=== PATIENT | female | born 1935 | race Caucasian/White ===

== ENCOUNTER 2018-07-14 15:43 | Emergency (ER) | payer OTHER ==
--- OUTSIDE RECORDS SUMMARY | 2018-07-14 15:45 | XMS REPORT | Clinical Summary ---
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 Last Filed Vital Signs Not on file Plan of Treatment Health Maintenance Due Date Last Done Comments SHINGLES VACCINES (1 of 2) 1986 PNEUMOCOCCAL POLYSACCHARIDE VACCINE AGE 65 AND OVER 2001 PNEUMOCOCCAL-13 2001 INFLUENZA VACCINE 01/14/2018 Procedures Procedure Name Priority Date/Time Associated Diagnosis Comments NM BRAIN SPECT W I Routine 02/26/2018 4:37 Heterozygous for Results for this 123 DATSCAN PM CDT prothrombin [id number] procedure are in mutation the results section. after 07/13/2017 Results NM Brain Spect W I 123 Datscan (02/26/2018 4:37 PM CDT) Narrative Performed At PROCEDURE:NM BRAIN SPECT W I 123 DATSCAN RADIANT INDICATION:Parkinson's disease. TECHNIQUE: The patient was pretreated with potassium iodide drops for thyroid protection and then injected with 4 mCi of I-123 DaTscan IV. Brain SPECT imaging was then performed. FINDINGS:Posterior striatal uptake is decreased, left side worse than right. 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 [facility]-[id number] Procedure Note Hm Interface, Radiology Results - 02/26/2018 6:10 PM CDT PROCEDURE: NM BRAIN SPECT W I 123 DATSCAN INDICATION: Parkinson's disease. TECHNIQUE: The patient was pretreated with potassium iodide drops for thyroid protection and then injected with 4 mCi of I-123 DaTscan IV. Brain SPECT imaging was then performed. FINDINGS: Posterior striatal uptake is decreased, left side worse than right. IMPRESSION: 1. 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 [facility]-[id number] Performing Organization Address City/State/Zipcode Phone Number [facility] [address] [place] [address] after 07/13/2017 Insurance Payer Benefit Plan / Group Subscriber ID Type Phone Address AETNA AETNA PPO OPEN CHOICE xxxxxxxx PPO AETNA MEDICARE AETNA MEDICARE HMO/PPO [facility] xxxxxxxx HMO (Lead) [place] [address] Advance Directives Patient has advance care planning documents on file. For more information, please contact:Huan Garg[address] [place] [address]
--- NOTE | 2018-07-14 16:36 | RAD REPORT ---
EXAM DESCRIPTION: RAD - Chest Single View - 07/14/2018 4:30 pm CLINICAL HISTORY: CHEST PAIN Chest pain. COMPARISON: No comparisons FINDINGS: Portable technique limits examination quality. The lungs are emphysematous but clear. The heart is normal in size. No displaced fractures.Aortic ath erosclerosis. 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 IMPRESSION: COPD.
[2018-07-14 16:37] LABS: Absolute Lymphocytes (CBC) 1.4 K/uL (0.7-4.9); Absolute Monocytes 0.4 K/uL (0.1-1.3); Absolute Neutrophil 4.1 K/uL (1.8-8.0); Basophils % 0.8 % (0-1.3); Eosinophils % 4.8 % (0-4.4); Hematocrit 37.8 % (36.0-45.0); Lymphocytes % 22.2 % (15.3-44.8); MPV 8.1 fL (7.6-11.3); Monocytes % 6.1 % (3.3-12.3); RBC Red Blood Cell Count 4.16 M/uL (3.86-4.86)
[2018-07-14 16:42] LABS: Protime INR 1.07
[2018-07-14 16:54] LABS: ALT/SGPT 30 U/L (12-78); AST/SGOT 24 U/L (15-37); Albumin 3.8 g/dL (3.4-5.0); Alkaline Phosphatase 85 U/L (45-117); BUN Blood Urea Nitrogen 19 mg/dL (7-18); Bicarbonate 30 mmol/L (21-32); Bilirubin Direct < 0.1 mg/dL (0-0.2); Bilirubin Total 0.3 mg/dL (0.2-1.0); Glucose Level 95 mg/dL (74-106); Magnesium 2.1 mg/dL (1.8-2.4); NT PRO-BNP 485 pg/mL (<450); Potassium 3.6 mmol/L (3.5-5.1); Protein, Total 7.2 g/dL (6.4-8.2); Sodium Level 140 mmol/L (136-145); Troponin (Emerg Dept Use Only) 0.02 ng/mL (0.0-0.045)
[2018-07-14] MEDS ORDERED: IPRATROPIUM BROM 0.5MG/2.5ML ONE (17:03)
[2018-07-14] MEDS ORDERED: LEVALBUTEROL 1.25 MG/3 ML NEB ONE (17:03)
--- NOTE | 2018-07-14 17:07 | EKG ---
Test Date: 2018-07-14 Test Time: 16:27:49 Vault Attendant: ANKITA MEASUREMENT RESULTS: Intervals: Rate: 63 ID: [id number] QRSD: 78 QT: 448 QTc: 458 [place]: P: 62 ID: [id number] QRS: 1 T: -28 INTERPRETIVE STATEMENTS: Sinus rhythm with 1st degree AV block Nonspecific T wave abnormality Abnormal ECG No previous ECG available for comparison Electronically Signed On 07-14-18 17:06:38 UPHOLSTERER HELPER by Tom Gillespie
[2018-07-14] MEDS ORDERED: ASPIRIN 81 MG CHEWABLE TABLET ONE (18:52)
--- NOTE | 2018-07-14 19:22 | RAD REPORT ---
EXAM DESCRIPTION: CT - Chest For Pe Angio - 07/14/2018 6:58 pm CLINICAL HISTORY: Progressive chest pain COMPARISON: None. TECHNIQUE: Dynamically enhanced 3 mm thick images of the chest were obtained during administration o f approximately 150mL Isovue 370 IV contrast. Coronal and oblique MIP reconstruction images were gene rated and reviewed. Exam utilizes a protocol to evaluate the pulmonary arterial tree. All CT scans are performed using dose optimization technique as appropriate and may include automated exposure control or mA/KV adjustment according to patient size. FINDINGS: A small hypodense focus is present in the distal aspect of a medial left upper lobe segmen fatoumata branch artery (image 25/76). This partially fills the vessel lumen. This is believed to be a pulm onary embolism but cannot be confirmed as acute. The vessel is not dilated. There are no other fillin g defects in the left upper lobe and no other filling defects elsewhere in the pulmonary arterial cheng e distribution. The aorta as imaged shows no acute or suspicious finding. No pericardial thickening or effusion. Interstitial markings are prominent. No acute consolidation. Mild bronchial wall thickening is seen. Pattern with along with an underlying COPD. A mild viral infiltrative process would be possible. No p leural effusion or pleural thickening. In the anterior left lung base (image 56/76) there is an 8 millimeter noncalcified nodule. No compari son available to establish stability. No other mass or nodularity. No mediastinal or hilar suspicious masses. No chest wall masses or abnormal axillary lymphadenopathy. IMPRESSION: A single, small pulmonary embolism is present within a segmental branch medial left uppe r lobe partially filling the lumen. This is favored to be old. No other filling defect or pulmonary artery acute finding. An 8 millimeter nodule in the anterior lower left lung field near the fissure warrants re-evaluation CT imaging in 3 months. Interstitial markings are prominent and mild peribronchial thickening seen. This is probably baseline COPD. Viral infiltrate could be masked in this setting.
--- NOTE | 2018-07-14 19:32 | RAD REPORT ---
EXAM DESCRIPTION: US - Abdomen Exam Limited - 07/14/2018 7:17 pm CLINICAL HISTORY: Abdominal pain COMPARISON: CT study 2010 FINDINGS: No gallstones, sludge or other abnormalities within the gallbladder lumen. There is no wal l thickening or pericholecystic fluid. No common duct stone or biliary tree dilatation identified. IMPRESSION: Normal gallbladder and biliary tree ultrasound.
[2018-07-14] MEDS ORDERED: FAMOTIDINE 20 MG/2 ML VIAL IV ONE (19:48)
--- NOTE | 2018-07-14 19:55 | ER ---
Nurse's Notes [facility] Name: Fidelina Flores Age: 82 yrs Sex: Female : 1935 Arrival Date: 07/14/2018 Time: 15:44 Bed 17 Private MD: Carlin Salazar Diagnosis: Acute Chest Pain Presentation: 07/14 15:49 Presenting complaint: Patient states: started having chest pain for a few days, it is tw2 just getting worse, it comes and goes. Transition of care: patient was not received from another setting of care. Onset of symptoms was July 14, 2018. Risk Assessment: Do you want to hurt yourself or someone else? Patient reports no desire to harm self or others. Initial Sepsis Screen: Does the patient meet any 2 criteria? No. Patient's initial sepsis screen is negative. Does the patient have a suspected source of infection? No. Patient's initial sepsis screen is negative. Care prior to arrival: None. 15:49 Method Of Arrival: Wheelchair tw2 15:49 Acuity: PABLO 3 tw2 Triage Assessment: 15:50 General: Appears in no apparent distress. well groomed, Behavior is calm, cooperative, tw2 appropriate for age. Pain: Complains of pain in chest. Cardiovascular: Reports chest pain, Denies lightheadedness, shortness of breath. Historical: - Allergies: 15:50 No Known Allergies; tw2 - Home Meds: 15:50 Xanax Oral [Active]; Prozac Oral [Active]; "sleeping pill" [Active]; tw2 - Immunization history:: Adult Immunizations. - Social history:: Smoking status: Patient/guardian denies using tobacco. - Ebola Screening: : Patient denies travel to an Ebola-affected area in the 21 days before illness onset. - Family history:: not pertinent. - Hospitalizations: : No recent hospitalization is reported. Screenin:55 Abuse screen: Denies threats or abuse. Denies injuries from another. Nutritional bp screening: No deficits noted. Tuberculosis screening: No symptoms or risk factors identified. Fall Risk None identified. Assessment: 15:50 General: Appears in no apparent distress. comfortable, Behavior is calm, cooperative, ca1 appropriate for age. Pain: Complains of pain in chest Pain radiates to back Pain at worst was 7 out of 10 on a pain scale. Pain began 2-3 days ago. Neuro: Level of Consciousness is awake, alert, obeys commands, Oriented to person, place, time, situation, Appropriate for age. Cardiovascular: Heart tones S1 S2 present Capillary refill < 3 seconds Patient's skin is warm and dry. Rhythm is sinus rhythm. Respiratory: Reports cough that is productive, Airway is patent Respiratory effort is even, unlabored, Respiratory pattern is regular, symmetrical, Breath sounds are clear bilaterally. GI: Abdomen is flat, non-distended, Bowel sounds present X 4 quads. Abd is soft and non tender X 4 quads. : No signs and/or symptoms were reported regarding the genitourinary system. EENT: No signs and/or symptoms were reported regarding the EENT system. Derm: Skin is intact, Skin is pink, warm \\T\\ dry. Musculoskeletal: Circulation, motion, and sensation intact. 16:44 Reassessment: Dr. Monsivais at bedside. ca1 17:15 Reassessment: Patient appears in no apparent distress at this time. Patient and/or ca1 family updated on plan of care and expected duration. Pain level reassessed. Patient is alert, oriented x 3, equal unlabored respirations, skin warm/dry/pink. 18:10 Reassessment: ALL CURRENT ORDERS COMPLETED, RESULTS PENDING FOR DISPO. bp 18:20 Reassessment: Dr. Monsivais at bedside. ca1 18:39 Reassessment: Assisted pt to restroom. ca1 18:51 Reassessment: PT TO U/S WITH HOUSE PAINTING INSTRUCTOR. bp 19:04 Reassessment: Patient and/or family updated on plan of care and expected duration. Pain ea level reassessed. Patient is alert, oriented x 3, equal unlabored respirations, skin warm/dry/pink. Ultrasound at bedside. 19:20 General: Appears comfortable, Behavior is calm, cooperative, appropriate for age. Pain: ea Complains of pain in chest Pain radiates to back. Neuro: Level of Consciousness is awake, alert, obeys commands, Oriented to person, place, time, situation. Cardiovascular: Patient's skin is warm and dry. Respiratory: Airway is patent Respiratory effort is even, unlabored, Respiratory pattern is regular, symmetrical, Breath sounds are clear bilaterally. GI: Abdomen is non-distended, Bowel sounds present X 4 quads. Derm: Skin is pink, warm \\T\\ dry. Musculoskeletal: Circulation, motion, and sensation intact. 19:38 Reassessment: Patient and/or family updated on plan of care and expected duration. Pain ea level reassessed. Pt complaining of pain, VO to obtain another EKG, pt tolerated well. EKG given to physician. 19:59 Reassessment: Patient and/or family updated on plan of care and expected duration. Pain ea level reassessed. Patient is alert, oriented x 3, equal unlabored respirations, skin warm/dry/pink. Patient states feeling better. Patient states symptoms have improved. 20:26 Reassessment: Patient and/or family updated on plan of care and expected duration. Pain ea level reassessed. Patient is alert, oriented x 3, equal unlabored respirations, skin warm/dry/pink. Pt verbalized she did not want to stay. She verbalized the understanding of possible adverse affects of leaving AMA, formed signed. Instruction given per physician, pt verbalized the understanding Patient states feeling better. Patient states symptoms have improved. Vital Signs: 15:49 BP 177 / 76; Pulse 83; Resp 17; Temp 97.9(TE); Pulse Ox 97% on R/A; Weight 60.78 kg tw2 (R); Pain 8/10; 16:27 BP 113 / 58; Pulse 68; Resp 19; Pulse Ox 97% on R/A; Pain 0/10; ca1 17:15 BP 112 / 54; Pulse 61; Resp 16; Pulse Ox 97% on R/A; ca1 18:10 BP 106 / 50; Pulse 61; Resp 19; Pulse Ox 99% ; bp 19:21 BP 171 / 85; Pulse 81; Resp 18; Pulse Ox 95% on R/A; ea 19:59 BP 150 / 71; Pulse 66; Resp 18; Pulse Ox 97% on R/A; ea ED Course: 15:44 Patient arrived in ED. as 15:44 Carlin Salazar MD is Private Physician. as 15:45 José Miguel Sanders, OLIVIER is Primary Nurse. bp 15:48 West Monsivais MD is Attending Physician. wa 15:49 Triage completed. tw2 15:50 Arm band placed on. tw2 15:55 Patient has correct armband on for positive identification. Bed in low position. Call bp light in reach. Side rails up X2. Adult w/ patient. athletic monitor on. Pulse ox on. NIBP on. 16:04 Initial lab(s) drawn, by me, held in ED. Inserted saline lock: 20 gauge in left mh5 antecubital area, using aseptic technique. Blood collected. 16:05 Patient has correct armband on for positive identification. Placed in gown. Bed in low mh5 position. Call light in reach. Side rails up X 1. Adult w/ patient. Warm blanket given. athletic monitor on. Pulse ox on. NIBP on. 16:30 XRAY Chest (1 view) In Process Unspecified. EDMS 16:38 EKG done, by precision agriculture technician. reviewed by West Monsivais MD. dt2 18:24 Spring Former Machine paged at 18:24. 18:[address] via stretcher. nj 18:58 CT completed. Patient tolerated procedure well. Patient moved back from CT. nj 18:59 CT Chest For PE Angio In Process Unspecified. EDMS 19:17 US Abdomen Limited In Process Unspecified. EDMS 19:22 Patient maintains SpO2 saturation greater than 95% on room air. ea 19:54 Tom Gillespie MD is Referral Physician. wa 20:28 No provider procedures requiring assistance completed. IV discontinued, intact, ea bleeding controlled, No redness/swelling at site. Pressure dressing applied. Administered Medications: 18:44 Drug: Aspirin Chewable Tablet 324 mg Route: PO; bp 19:20 Follow up: Response: No adverse reaction ea 19:41 Drug: Pepcid 20 mg Route: IVP; Site: left antecubital; ea 20:15 Follow up: Response: No adverse reaction; Marked relief of symptoms ea Outcome: 19:54 Discharge ordered by . wa 20:28 AMA AMA form signed ea 20:28 Condition: improved 20:28 Discharge instructions given to patient, Instructed on follow up and referral plans. Demonstrated understanding of instructions. 20:30 Patient left the ED. ea Signatures: Dispatcher [employer] EDMS Noemi dHz Amelia as Wise, Tara, RN RN 2 Chris March Maria [facility] Tamika Kelsey RN RN ea Appiah, William, MD MD wa Peltier, Brian RN RN bp Divya Desir dt2 Mila Schmidt RN RN ca1 Corrections: (The following items were deleted from the chart) 20:28 20:26 Reassessment: Patient and/or family updated on plan of care and expected ea duration. Pain level reassessed. Patient is alert, oriented x 3, equal unlabored respirations, skin warm/dry/pink. Pt verbalized she did not want to stay. She verbalized the understanding of possible adverse affects of leaving AMA, formed signed. Patient states feeling better. Patient states symptoms have improved. ea 21:13 21:13 Patient left the ED. ea ea
--- NOTE | 2018-07-14 19:55 | EDPHYS ---
Physician Documentation [facility] Name: Fidelina Flores Age: 82 yrs Sex: Female : 1935 Arrival Date: 07/14/2018 Time: 15:44 Bed 17 Private MD: Carlin Salazar ED Physician [place] HPI: 07/14 16:53 This 82 yrs old Female presents to ER via Wheelchair with complaints of Chest wa Pain. 16:53 The patient or guardian reports chest pain that is located primarily in the substernal wa area. Onset: 5 day(s) ago. The pain does not radiate. Associated signs and symptoms: Pertinent negatives: abdominal pain, cough, dizziness, lightheadedness, palpitations, shortness of breath, syncope, vomiting. The chest pain is described as aching. Duration: The patient or guardian reports multiple episodes, that are intermittent, with the last episode occurring 20 minute(s) ago. Modifying factors: The symptoms are alleviated by nothing. the symptoms are aggravated by nothing. Severity of pain: At its worst the pain was a 8 / 10 in the emergency department the pain is a 0 / 10. The patient has not experienced similar symptoms in the past. The patient has not recently seen a physician. per pt and , had an episode of a "cold" last week that resolved within 2 days prior to this. Historical: - Allergies: 15:50 No Known Allergies; tw2 - Home Meds: 15:50 Xanax Oral [Active]; Prozac Oral [Active]; "sleeping pill" [Active]; tw2 - Immunization history:: Adult Immunizations. - Social history:: Smoking status: Patient/guardian denies using tobacco. - Ebola Screening: : Patient denies travel to an Ebola-affected area in the 21 days before illness onset. - Family history:: not pertinent. - Hospitalizations: : No recent hospitalization is reported. ROS: 16:55 Constitutional: Negative for fever, chills, and weight loss, Eyes: Negative for injury, wa pain, redness, and discharge, ENT: Negative for injury, pain, and discharge, Neck: Negative for injury, pain, and swelling, Respiratory: Negative for shortness of breath, cough, wheezing, and pleuritic chest pain, Abdomen/GI: Negative for abdominal pain, nausea, vomiting, diarrhea, and constipation, Back: Negative for injury and pain, : Negative for injury, bleeding, discharge, and swelling, MS/Extremity: Negative for injury and deformity, Skin: Negative for injury, rash, and discoloration, Neuro: Negative for headache, weakness, numbness, tingling, and seizure. 16:55 Cardiovascular: Positive for chest pain, Negative for edema, orthopnea, palpitations, paroxysmal nocturnal dyspnea. 16:55 All other systems are negative. Exam: 16:56 Constitutional: This is a well developed, well nourished patient who is awake, alert, wa and in no acute distress. Head/Face: Normocephalic, atraumatic. Eyes: Pupils equal round and reactive to light, extra-ocular motions intact. Lids and lashes normal. Conjunctiva and sclera are non-icteric and not injected. Cornea within normal limits. Periorbital areas with no swelling, redness, or edema. ENT: Nares patent. No nasal discharge, no septal abnormalities noted. Tympanic membranes are normal and external auditory canals are clear. Oropharynx with no redness, swelling, or masses, exudates, or evidence of obstruction, uvula midline. Mucous membranes moist. Neck: Trachea midline, no thyromegaly or masses palpated, and no cervical lymphadenopathy. Supple, full range of motion without nuchal rigidity, or vertebral point tenderness. No Meningismus. Chest/axilla: Normal chest wall appearance and motion. Nontender with no deformity. No lesions are appreciated. Abdomen/GI: Soft, non-tender, with normal bowel sounds. No distension or tympany. No guarding or rebound. No evidence of tenderness throughout. Back: No spinal tenderness. No costovertebral tenderness. Full range of motion. Skin: Warm, dry with normal turgor. Normal color with no rashes, no lesions, and no evidence of cellulitis. MS/ Extremity: Pulses equal, no cyanosis. Neurovascular intact. Full, normal range of motion. Neuro: Awake and alert, GCS 15, oriented to person, place, time, and situation. Cranial nerves II-XII grossly intact. Motor strength 5/5 in all extremities. Sensory grossly intact. Cerebellar exam normal. Normal gait. Psych: Awake, alert, with orientation to person, place and time. Behavior, mood, and affect are within normal limits. 16:56 Cardiovascular: Rate: normal, Rhythm: regular, Pulses: no pulse deficits are appreciated, Heart sounds: normal, Edema: is not appreciated, JVD: is not appreciated. 16:56 Respiratory: the patient does not display signs of respiratory distress, Respirations: normal, Breath sounds: are clear throughout, Respiratory rate: normal Vital Signs: 15:49 BP 177 / 76; Pulse 83; Resp 17; Temp 97.9(TE); Pulse Ox 97% on R/A; Weight 60.78 kg tw2 (R); Pain 8/10; 16:27 BP 113 / 58; Pulse 68; Resp 19; Pulse Ox 97% on R/A; Pain 0/10; ca1 17:15 BP 112 / 54; Pulse 61; Resp 16; Pulse Ox 97% on R/A; ca1 18:10 BP 106 / 50; Pulse 61; Resp 19; Pulse Ox 99% ; bp 19:21 BP 171 / 85; Pulse 81; Resp 18; Pulse Ox 95% on R/A; ea 19:59 BP 150 / 71; Pulse 66; Resp 18; Pulse Ox 97% on R/A; ea MDM: 15:48 Patient medically screened. wa 16:56 Differential diagnosis: elderly female with new onset chest pain. no other wa associations. will r/o ACS. consider pna. will r/o PE with d-dimer. will reassess. 19:47 Data reviewed: vital signs, nurses notes, lab test result(s), EKG, radiologic studies. wa Test interpretation: by ED physician or midlevel provider: CXR noted for COPD pattern. labs noted for elevated d-dimer. CT chest AK protocol: note for single, small, segmental branch PE L upper lobe favored to be old per rad. RUQ US: no acute liver or gallbladder abnormalities. lipase and LFT's normal.. Response to treatment: the patient's symptoms have markedly improved after treatment. Physician consultation: Tom Gillespie MD. ED course: pt had episode in ED of same chest pain. lasted about 5 minutes prior to easing. repeat EKG at the time, unchanged. similar to previous. Essentially negative work up to explain intermittent chest pain. Discussed the need to admit for further eval. pt adamant and will not accept admit. spoke with her cyber operator. advised will see her urgently and can have pt go home. will have pt and family sign AMA as reason for pain still unclear at the moment, in this elderly female.. 19:53 Test interpretation: by ED physician or midlevel provider: ECG, EKG: x 2: noted for 1st deg AV block. non-specific ST-T changes. 07/14 16:14 Order name: Basic Metabolic Panel; Complete Time: 17:49 bp 07/14 16:14 Order name: CBC with Diff; Complete Time: 17:49 bp 07/14 16:14 Order name: LFT's; Complete Time: 17:49 bp 07/14 16:14 Order name: Magnesium; Complete Time: 17:49 bp 07/14 16:14 Order name: NT PRO-BNP; Complete Time: 17:49 bp 07/14 16:14 Order name: PT-INR; Complete Time: 17:49 bp 07/14 16:14 Order name: Troponin (emerg Dept Use Only); Complete Time: 17:49 bp 07/14 16:14 Order name: XRAY Chest (1 view); Complete Time: 16:51 bp 07/14 16:50 Order name: D-Dimer; Complete Time: 18:45 07/14 18:22 Order name: Lipase; Complete Time: 19:32 07/14 18:23 Order name: US Abdomen Limited; Complete Time: 19:36 07/14 18:46 Order name: CT Chest For PE Angio; Complete Time: 19:32 07/14 16:14 Order name: EKG; Complete Time: 16:15 bp 07/14 16:14 Order name: Cardiac monitoring; Complete Time: 16:23 bp 07/14 16:14 Order name: EKG - Nurse/Tech; Complete Time: 16:28 bp 07/14 16:14 Order name: IV Saline Lock; Complete Time: 16:23 bp 07/14 16:14 Order name: Labs collected and sent; Complete Time: 16:24 bp 07/14 16:14 Order name: O2 Per Protocol; Complete Time: 16:24 bp 07/14 16:14 Order name: O2 Sat Monitoring; Complete Time: 16:24 bp Administered Medications: 18:44 Drug: Aspirin Chewable Tablet 324 mg Route: PO; bp 19:20 Follow up: Response: No adverse reaction ea 19:41 Drug: Pepcid 20 mg Route: IVP; Site: left antecubital; ea 20:15 Follow up: Response: No adverse reaction; Marked relief of symptoms ea Disposition: 07/14/18 19:54 Discharged to Home. Impression: Acute Chest Pain. - Condition is Stable. - Discharge Instructions: Nonspecific Chest Pain, [id number]. - Medication Reconciliation Form, Thank You Letter, Antibiotic Education, Prescription Opioid Use form. - Follow up: Tom Gillespie MD; When: Tomorrow; Reason: Recheck today's complaints. - Problem is new. - Symptoms have improved. - Notes: the definitive reason for your pain is not clear at this time. This is the reason I have suggested observation for further evaluation, to which you have refused. Your risk of worsening illness, including if you go home has been explained and accepted by you. Your cyber operator, Dr. Gillespie has agreed to see you tomorrow so please go see him in the morning. However, return here immediately if your symptoms worsen, especially rapidly and or severe. Signatures: Dispatcher [employer] EDPilar Baer RN RN tw2 Tamika Kelsey RN RN [place] MD MD va José Miguel Sanders RN RN bp Corrections: (The following items were deleted from the chart) 21:13 19:54 07/14/2018 19:54 Discharged to Home. Impression: Acute Chest Pain. Condition is ea Stable. Forms are Medication Reconciliation Form, Thank You Letter, Antibiotic Education, Prescription Opioid Use. Follow up: Tom Gillespie; When: Tomorrow; Reason: Recheck today's complaints. Problem is new. Symptoms have improved. byron
--- NOTE | 2018-07-15 15:54 | EKG ---
Test Date: 2018-07-14 Test Time: 19:25:12 Ball Sorter: EA MEASUREMENT RESULTS: Intervals: Rate: 76 AR: 264 QRSD: 82 QT: 430 QTc: 483 Hitchcock: P: 44 AR: 264 QRS: -13 T: -11 INTERPRETIVE STATEMENTS: Sinus rhythm with 1st degree AV block Cannot rule out Anterior infarct, age undetermined Abnormal ECG Compared to ECG 07/14/2018 16:27:49 Questionable myocardial infarct finding now present T-wave abnormality no longer present Electronically Signed On 07-15-18 15:54:04 [employer] PH[employer]APH by Rex Simpson
== END 2018-07-14 21:13 | disposition home or self-care (01) ==
LOC: ER 15:43
DX: R07.9 Chest pain, unspecified (principal)
CPT/HCPCS: 36415; 71045; 71275; 76705; 80048; 80076; 83690; 83735; 83880; 84484; 85025; 85379; 85610; 93005 ×2; Q9967; 96374; 99285

== ENCOUNTER 2018-07-17 15:42 | Emergency (ER) | payer OTHER ==
--- OUTSIDE RECORDS SUMMARY | 2018-07-17 15:44 | XMS REPORT | Clinical Summary ---
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 [facility]-[id number] Performing Organization Address City/State/Zipcode Phone Number [facility] [address] [place] [address] after 07/16/2017 Insurance Payer Benefit Plan / Group Subscriber ID Type Phone Address AETNA AETNA PPO OPEN CHOICE xxxxxxxx PPO AETNA MEDICARE AETNA MEDICARE HMO/PPO [facility] xxxxxxxx HMO ([place]) [place] [address] Advance Directives Patient has advance care planning documents on file. For more information, please contact:Huan Garg[address] [place] [address]
--- NOTE | 2018-07-17 16:51 | EDPHYS ---
Physician Documentation [facility] Name: Fidelina Flores Age: 82 yrs Sex: Female : 1935 Arrival Date: 07/17/2018 Time: 15:43 Bed 2 Private MD: Carlin Salazar ED Physician Lars Rowland HPI: 07/17 16:17 This 82 yrs old Female presents to ER via Wheelchair with complaints of Chest jmm Pain. 16:17 The patient or guardian reports chest pain that is located primarily in the substernal jmm area. 16:17 Onset: gradually, 3 day(s) ago. The pain radiates to the left arm. The chest pain is jmm described as a pressure. Duration: The patient or guardian reports multiple episodes, that are intermittent. This is an 82 year old female with a history of CAD that presents to the ED with complaints of left sided chest pain beginning this past Friday. Evaluated in the ED and elected to go home with outpatient cardiology follow up. Patient was unable to follow up and return to the ED with worsening pain beginning this morning at approx 0900. Pain is exertional. . Historical: - Allergies: 15:56 No Known Allergies; aj1 - PMHx: 15:56 None; aj1 - Immunization history:: Flu vaccine is not up to date. - Social history:: Smoking status: Patient/guardian denies using tobacco. - Ebola Screening: : Patient denies travel to an Ebola-affected area in the 21 days before illness onset. ROS: 16:17 Constitutional: Negative for fever, chills, and weight loss. jmm 16:17 Abdomen/GI: Negative for abdominal pain, nausea, vomiting, diarrhea, and constipation. 16:17 Cardiovascular: Positive for chest pain. 16:17 MS/extremity: Positive for pain. 16:17 All other systems are negative. Exam: 16:17 Constitutional: This is a well developed, well nourished patient who is awake, alert, jmm and in no acute distress. Head/Face: atraumatic. Eyes: EOMI, no conjunctival erythema appreciated ENT: Moist Mucus Membranes Neck: Trachea midline, Supple 16:17 Neck: External neck: 16:17 Cardiovascular: Rate: normal, Rhythm: regular, Pulses: no pulse deficits are appreciated. 16:17 Respiratory: the patient does not display signs of respiratory distress, Respirations: normal, Breath sounds: are clear throughout. 16:17 Abdomen/GI: Inspection: abdomen appears normal, Bowel sounds: normal, Palpation: abdomen is soft and non-tender. 16:17 Musculoskeletal/extremity: ROM: intact in all extremities. 16:17 Skin: Appearance: Color: normal in color. 16:17 Neuro: Orientation: is normal, Mentation: is normal, Memory: is normal. 16:17 Psych: Behavior/mood is pleasant, cooperative. Vital Signs: 15:56 BP 140 / 67; Pulse 91; Resp 18; Temp 97.7; Pulse Ox 98% on R/A; Weight 59.87 kg (R); aj1 Height 5 ft. 2 in. (157.48 cm) (R); Pain 7/10; 16:44 BP 143 / 79; Pulse 93; Resp 18; Temp 97.7; Pulse Ox 99% on R/A; sg 15:56 Body Mass Index 24.14 (59.87 kg, 157.48 cm) aj1 MDM: 16:17 Patient medically screened. [facility] 16:48 Data reviewed: vital signs, nurses notes. Data interpreted: Pulse oximetry: on room air [facility] is 99 %. Interpretation: normal. Counseling: I had a detailed discussion with the patient and/or guardian regarding: the historical points, exam findings, and any diagnostic results supporting the discharge/admit diagnosis. ED course: I discussed the patient with Dr. Jimenez whom accepted transfer. Recommends heparin. 07/17 16:17 Order name: Basic Metabolic Panel [facility] 07/17 16:17 Order name: CBC with Diff [facility] 07/17 16:17 Order name: LFT's [facility] 07/17 16:17 Order name: Magnesium [facility] 07/17 16:17 Order name: NT PRO-BNP [facility] 07/17 16:17 Order name: PT-INR; Complete Time: 17:04 [facility] 07/17 16:17 Order name: Troponin (emerg Dept Use Only) [facility] 07/17 16:17 Order name: XRAY Chest (1 view); Complete Time: 17:04 [facility] 07/17 16:17 Order name: EKG; Complete Time: 16:19 [facility] 07/17 17:06 Order name: CBC Smear Scan [facility] 07/17 16:17 Order name: Cardiac monitoring; Complete Time: 16:30 [facility] 07/17 16:17 Order name: EKG - Nurse/Tech; Complete Time: 16:30 [facility] 07/17 16:17 Order name: IV Saline Lock; Complete Time: 16:30 [facility] 07/17 16:17 Order name: Labs collected and sent; Complete Time: 16:30 [facility] 07/17 16:17 Order name: O2 Per Protocol; Complete Time: 17:24 [facility] 07/17 16:17 Order name: O2 Sat Monitoring; Complete Time: 17:24 [facility] Administered Medications: 17:00 Drug: Zofran 4 mg Route: IVP; Site: right forearm; sg 17:24 Follow up: Response: No adverse reaction; Nausea is decreased sg 17:03 Drug: morphine 2 mg Route: IVP; Site: right forearm; sg 17:24 Follow up: Response: No adverse reaction; Pain is decreased sg 17:05 Drug: Heparin (IL-Bolus No thrombolytic) - HEParin 60 units/kg {Co-Signature: hb sg (Candace Blanton RN).} Route: IVP; Site: right forearm; 17:07 Drug: Heparin (IL Drip) 12 units/kg/hr - (HEParin 07194 units, D5W 500 ml) sg {Co-Signature: hb (Candace Blanton RN).} Route: IV; Rate: calculated rate; Site: right forearm; Disposition: 07/17/18 16:50 Transfer ordered to [facility]. 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 - Reason for transfer: Higher level of care. - Accepting physician is Nasser. - Condition is Stable. - Problem is new. - Symptoms are unchanged. Addendum: 07/20/2018 07:09 Co-signature as Attending Physician, Lars Rowland MD I agree with the assessment and k dr plan of care. Signatures: Dispatcher [employer] Deandra Post RN RN aj1 Nikko Ronquillo RN RN sg Rittger, Kevin, MD MD kdr Mickail, Joel, PA PA jmm Heather Baxter RN hb Corrections: (The following items were deleted from the chart) 07/17 17:27 16:50 07/17/2018 16:[address] [facility]. Diagnosis is sg ST elevation (STEMI) myocardial infarction of inferior wall. Reason for transfer: Higher level of care. Accepting physician is Barbara. Condition is Stable. Problem is new. Symptoms are unchanged. ashley
--- NOTE | 2018-07-17 16:51 | ER ---
Nurse's Notes [facility] Name: Fidelina Flores Age: 82 yrs Sex: Female : 1935 Arrival Date: 07/17/2018 Time: 15:43 Bed 2 Private MD: Carlin Salazar Diagnosis: ST elevation (STEMI) myocardial infarction of inferior wall Presentation: 07/17 15:54 Presenting complaint: Patient states: She was seen her on Friday for chest pain. All aj1 of her tests looked normal, so she decided she would rather be discharged and went home. She was instructed to follow up with her nurse sane but when she called the next morning she found out he is out of town for the next 2 weeks. Patient reports that she has continued chest pain since then. Transition of care: patient was not received from another setting of care. Onset of symptoms was 2018. Risk Assessment: Do you want to hurt yourself or someone else? Patient reports no desire to harm self or others. Initial Sepsis Screen: Does the patient meet any 2 criteria? No. Patient's initial sepsis screen is negative. Does the patient have a suspected source of infection? No. Patient's initial sepsis screen is negative. Care prior to arrival: None. 15:54 Method Of Arrival: Wheelchair aj1 15:54 Acuity: PABLO 3 aj1 16:34 Acuity: PABLO 2 hb Triage Assessment: 15:56 General: Appears in no apparent distress. comfortable, Behavior is calm, cooperative, aj1 appropriate for age. Pain: Complains of pain in mid-sternal area Pain currently is 7 out of 10 on a pain scale. Neuro: Level of Consciousness is awake, alert, obeys commands. Cardiovascular: Patient's skin is warm and dry. Respiratory: Airway is patent Respiratory effort is even, unlabored, Respiratory pattern is regular, symmetrical. Historical: - Allergies: 15:56 No Known Allergies; aj1 - PMHx: 15:56 None; aj1 - Immunization history:: Flu vaccine is not up to date. - Social history:: Smoking status: Patient/guardian denies using tobacco. - Ebola Screening: : Patient denies travel to an Ebola-affected area in the 21 days before illness onset. Screenin:25 Abuse screen: Denies threats or abuse. Denies injuries from another. Nutritional sg screening: No deficits noted. Tuberculosis screening: No symptoms or risk factors identified. Never had TB. Fall Risk None identified. Assessment: 16:25 General: Appears in no apparent distress. comfortable, well groomed, well developed, sg well nourished, Behavior is calm, cooperative, appropriate for age. Pain: Complains of pain in mid-sternal area and left anterior chestwall Quality of pain is described as aching, sharp. Neuro: Level of Consciousness is awake, alert, obeys commands, Oriented to person, place, time, Administrative Assistant Receptionist are equal bilaterally Moves all extremities. Full function Gait is steady, Speech is normal, Facial symmetry appears normal, Pupils are PERRLA. Cardiovascular: Capillary refill is brisk in bilateral fingers Patient's skin is warm and dry. Chest pain is denied. Respiratory: Airway is patent Respiratory effort is even, unlabored, Respiratory pattern is regular, symmetrical. GI: Abdomen is flat, non-distended, Patient currently denies diarrhea, nausea, pain, vomiting. : No signs and/or symptoms were reported regarding the genitourinary system. EENT: No signs and/or symptoms were reported regarding the EENT system. Derm: Skin is pink, warm \T\ dry. Musculoskeletal: No signs and/or symptoms reported regarding the musculoskeletal system. 16:39 Reassessment:. sg 17:20 Reassessment: Patient appears in no apparent distress at this time. Patient and/or sg family updated on plan of care and expected duration. Pain level reassessed. Patient is alert, oriented x 3, equal unlabored respirations, skin warm/dry/pink. pt family at bedside at this time, awaiting transportation to receiving facility at this time, pt reports having slight relief from pain at this time. Vital Signs: 15:56 BP 140 / 67; Pulse 91; Resp 18; Temp 97.7; Pulse Ox 98% on R/A; Weight 59.87 kg (R); aj1 Height 5 ft. 2 in. (157.48 cm) (R); Pain 7/10; 16:44 BP 143 / 79; Pulse 93; Resp 18; Temp 97.7; Pulse Ox 99% on R/A; sg 15:56 Body Mass Index 24.14 (59.87 kg, 157.48 cm) aj1 ED Course: 15:43 Patient arrived in ED. mr 15:44 Carlin Salazar MD is Private Physician. mr 15:56 Triage completed. aj1 15:56 Arm band placed on Patient placed in an exam room. aj1 16:03 Shravan Mancilla PA is [facility]. [facility] 16:03 Lars Rowland MD is Attending Physician. [facility] 16:28 Director Of Content And Programming connected Dr. Simpson with Shravan FELICIANO for patient consultation. eb 16:29 Nikko Ronquillo, RN is Primary Nurse. sg 16:30 No provider procedures requiring assistance completed. Initial lab(s) drawn, by me, sg sent to lab. Inserted saline lock: 22 gauge in right forearm, using aseptic technique. Blood collected. Patient maintains SpO2 saturation greater than 95% on room air. 16:35 initiated a transfer with Melissa Hopkins RN financial coordinator at the [facility]. eb 16:[address] Jimenez the nurse sane installation specialist with [facility] FELICIANO for patient transfer eb consultation. 16:40 Placed in gown. Bed in low position. Call light in reach. Side rails up X 1. Cardiac hb monitor on. Pulse ox on. NIBP on. 16:54 XRAY Chest (1 view) In Process Unspecified. EDMS 17:01 administrative approval given by Melissa at the [facility]/ Dr Jimenez has accepted eb the patient in transfer to the color laboratory technician/ report to be called to [phone]. 17:13 Patient transferred, IV remains in place. intact, No redness/swelling at site. sg 17:30 Notified Nurse Practitioner and/or Physician Global Safety Officer of a critical lab result(s), sg 1.67 troponin. Administered Medications: 17:00 Drug: Zofran 4 mg Route: IVP; Site: right forearm; sg 17:24 Follow up: Response: No adverse reaction; Nausea is decreased sg 17:03 Drug: morphine 2 mg Route: IVP; Site: right forearm; sg 17:24 Follow up: Response: No adverse reaction; Pain is decreased sg 17:05 Drug: Heparin (NE-Bolus No thrombolytic) - HEParin 60 units/kg {Co-Signature: hb sg (Candace Blanton RN).} Route: IVP; Site: right forearm; 17:07 Drug: Heparin (NE Drip) 12 units/kg/hr - (HEParin 51259 units, D5W 500 ml) sg {Co-Signature: hb (Candace Blanton RN).} Route: IV; Rate: calculated rate; Site: right forearm; Outcome: 16:50 ER care complete, transfer ordered by MD. ramirez 17:13 Transferred by ground EMS to [facility], Transfer form completed. sg 17:14 Condition: stable sg 17:14 Instructed on the need for transfer, safety practices, Demonstrated understanding of instructions, report given to Merlyn RN with [facility] 17:27 Patient left the ED. sg Signatures: Dispatcher [employer] EDDeandra Tan RN RN aj1 Nikko Ronquillo RN RN sg Shravan Mancilla PA PA jmm Rivera, Mary mr Baxter, Heather, RN RN Alejandra Mcmillan RN Corrections: (The following items were deleted from the chart) 17:16 17:13 Transferred by ground EMS sg sg
[2018-07-17 16:56] LABS: Absolute Lymphocytes (CBC) 0.5 K/uL (0.7-4.9); Absolute Monocytes 0.3 K/uL (0.1-1.3); Absolute Neutrophil 6.2 K/uL (1.8-8.0); Basophils % 0.5 % (0-1.3); Eosinophils % 0.2 % (0-4.4); Hematocrit 36.9 % (36.0-45.0); Lymphocytes % 6.9 % (15.3-44.8); MPV 8.1 fL (7.6-11.3); Monocytes % 4.2 % (3.3-12.3); RBC Red Blood Cell Count 4.04 M/uL (3.86-4.86)
--- NOTE | 2018-07-17 16:56 | RAD REPORT ---
EXAM DESCRIPTION: RAD - Chest Single View - 07/17/2018 4:49 pm CLINICAL HISTORY: CHEST PAIN Chest pain. COMPARISON: Chest Single View dated 07/14/2018; Chest For Pe Angio dated 07/14/2018 FINDINGS: Portable technique limits examination quality. The lungs are grossly clear. The heart is normal in size. No displaced fractures. IMPRESSION: No acute intrathoracic process suspected.
[2018-07-17 16:58] LABS: Protime INR 1.06
--- NOTE | 2018-07-17 17:00 | EKG ---
Test Date: 2018-07-17 Test Time: 16:16:55 It Coordinator: ANKITA MEASUREMENT RESULTS: Intervals: Rate: 60 WA: 230 QRSD: 84 QT: 458 QTc: 458 [place]: P: 57 WA: 230 QRS: -2 T: 77 INTERPRETIVE STATEMENTS: Sinus rhythm with 1st degree AV block Inferior infarct, possibly acute Cannot rule out Anterior infarct, age undetermined T wave abnormality, consider lateral ischemia ACUTE [place] / STEMI Consider right ventricular involvement in acute inferior infarct Abnormal ECG Compared to ECG 07/14/2018 19:25:12 T-wave abnormality now present Possible ischemia now present Myocardial infarct finding still present Electronically Signed On 07-17-18 16:59:48 ASBESTOS WORKER HELPER by Rex Simpson
[2018-07-17] MEDS ORDERED: HEPARIN 5000 UNIT/ML 1 ML VIAL ONE (17:03)
[2018-07-17] MEDS ORDERED: HEPARIN/D5W 25,000 UNIT/500 ML BAG IV ONE (17:04)
[2018-07-17] MEDS ORDERED: MORPHINE 4 MG/ML SYR ONE (17:10)
[2018-07-17] MEDS ORDERED: ONDANSETRON 4 MG/2 ML VIAL ONE (17:11)
[2018-07-17 17:15] LABS: ALT/SGPT 29 U/L (12-78); AST/SGOT 33 U/L (15-37); Albumin 3.9 g/dL (3.4-5.0); Alkaline Phosphatase 78 U/L (45-117); BUN Blood Urea Nitrogen 16 mg/dL (7-18); Bicarbonate 28 mmol/L (21-32); Bilirubin Direct < 0.1 mg/dL (0-0.2); Bilirubin Total 0.3 mg/dL (0.2-1.0); Glucose Level 110 mg/dL (74-106); Magnesium 2.2 mg/dL (1.8-2.4); NT PRO-BNP 1123 pg/mL (<450); Protein, Total 7.2 g/dL (6.4-8.2); Sodium Level 138 mmol/L (136-145)
[2018-07-17 17:28] LABS: Troponin (Emerg Dept Use Only) 1.67 ng/mL (0.0-0.045)
[2018-07-17 17:56] LABS: Blood Morphology Comment NOT SEEN (NOT SEEN); Platelet Estimate ADEQ; Urine White Blood Cell Casts OK
== END 2018-07-17 17:27 | disposition short-term general hospital (02) ==
LOC: ER 15:42
DX: I21.19 ST elevation (STEMI) myocardial infarction involving other coronary artery of inferior wall (principal); I44.0 Atrioventricular block, first degree; I25.10 Atherosclerotic heart disease of native coronary artery without angina pectoris
CPT/HCPCS: 36415; 71045; 80048; 80076; 83735; 83880; 84484; 85025; 85610; 93005; 96374; 96375; 99285; J1644; J2405

== ENCOUNTER 2020-09-09 20:12 | Inpatient (IN) | payer OTHER ==
--- OUTSIDE RECORDS SUMMARY | 2020-09-09 20:16 | XMS REPORT | Continuity of Care Document ---
:1935 Author Organization [facility] t Address [address] [place] [address] Care Team Providers Name Role Phone Martin LERMA Primary Care Physician Kalpesh GAMEZ Attending Clinician Unavailable Kalpesh GAMEZ Admitting Clinician Unavailable Problems Condition Condition Condition Status Onset Resolution Last Treating Co mments Source Name Details Category Date Date Treatment Clinician Date CAD CAD Disease Active [facility]-04 [facility] - artery artery 00:00: Medical disease) disease) [address] Disease Active [facility] elevation elevation 2-01 [facility] - myocardial myocardial 00:00: Me dical infarction infarction 00 Ce nter 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 Social History Social Habit Start Date Stop Date Quantity Comments Source History SDOH [facility] Std Drinks Medica l Center History SDOH [facility] - Alcohol Binge Medical Gini ter Sex Assigned At [facility] Tobacco use and 2018-08-18 2018-08-18 Never used [facility] - [facility] Alcohol intake 2018-08-18 2018-08-[address] [facility] - 00:00:00 00:00:00 non-drinker of Medical Ce nter alcohol (finding) History SDOH 2018-08-14 2018-08-[address] [facility] - Alcohol Frequency 00:00:00 00:00:00 [facility] Center Smoking Status Start Date Stop Date Source Never sm[facility] Medications Ordered Filled Start Stop Current Ordering Indication Dosage Frequency Signature Comments Components Source Medication Medication Date Date Medication? Clinician (SIG) Name Name ALPRAZolam Yes .5mg Take 0.[address] [facility] (XANAX) 0.5 3-05 mg by [facility] - MG tablet 09:55: mouth Medical 19 every Center night as needed for Anxiety. temazepam Yes 30mg Take [address] (RESTORIL) 3-05 by mouth [facility] - 30 mg 09:55: every Medical capsule 19 night as Center needed for Sleep. traMADol Yes 50mg Take [address] [facility] (ULTRAM) 50 3-05 by mouth [facility] - mg tablet 09:55: every 6 Medic al 19 (six) Center hours as needed for Pain. multivitami Yes 1{tbl} QD Take [address] n per 3-05 tablet by [facility] - tablet 09:55: mouth Medical 19 daily. Center Procedures This patient has no known procedures. Plan of Care Planned Activity Planned Date Details Comments Source Future Scheduled 2020-02-15 INFLUENZA VACCINE (#1) [facility] 00:00:00 [code = INFLUENZA Medical Ce nter VACCINE (#1)] Future Scheduled 2020-01-15 INFLUENZA VACCINE [facility] 00:[facility]:00 [code = INFLUENZA VACCINE] Future Scheduled 2019-06-[address] [facility] - Test 00:00:00 WELLNESS (YEAR 2 or Medical Center FIRST YEAR if no IPPE) [code = MEDICARE ANNUAL WELLNESS (YEAR 2 or FIRST YEAR if no IPPE)] Future Scheduled 2001 65+ PNEUMOCOCCAL [facility] Test 00:00:00 VACCINE (1 of 1 - PPSV23) [code = 65+ PNEUMOCOCCAL VACCINE (1 of 1 - PPSV23)] Future Scheduled 2001 PNEUMOCOCCAL 65+ YRS [facility] - Test 00:00:00 (1 of 1 - Medical Center [id number] PCV13) [code = PNEUMOCOCCAL 65+ YRS (1 of 1 - [id number] PCV13)] Future Scheduled 1986 SHINGLES VACCINES (#1) [facility] 00:00:00 [code = SHINGLES VACCINES (#1)] Future Scheduled 1952 COVID-19 VACCINE (1) [facility] 00:00:00 [code = COVID-19 VACCINE (1)] Results Test Description Test Time Test Comments Results Result Comments Source BASIC METABOLIC PANEL 2018-08-18 05:35:00 Test Item Value Reference Range Interpretation Comme nts SODIUM (BEAKER) (test code 142 meq/L 136-145 = 381) POTASSIUM (BEAKER) (test 3.6 meq/L 3.5-5.1 code = 379) CHLORIDE (BEAKER) (test 113 meq/L 98-107 H code = 382) CO2 (BEAKER) (test code = 24 meq/L 22-29 355) BLOOD UREA NITROGEN 12 mg/dL 7-21 (BEAKER) (test code = 354) CREATININE (BEAKER) (test 0.62 mg/dL 0.57-1.25 code = 358) GLUCOSE RANDOM (BEAKER) 93 mg/dL 70-105 (test code = 652) CALCIUM (BEAKER) (test code 9.0 mg/dL 8.4-10.2 = 697) EGFR (BEAKER) (test code = 92 mL/min/1.73 sq m ESTIMATED GFR IS NOT 1092) ACCURATE CRE ATININE CLEARANCE IN [place] EDICTING GLOMERULAR FILT RATION RATE. ESTIMATED GFR IS NOT APPLICABLE FOR DIALYSIS PATIENTS. CBC (HEMOGRAM ONLY)2018-08-18 05:27:00 Test Item Value Reference Range Interpretation Comments WHITE BLOOD CELL COUNT (BEAKER) 4.7 K/ L 3.5-10.5 (test code = 775) RED BLOOD CELL COUNT (BEAKER) 3.21 M/ L 3.93-5.22 L (test code = 761) HEMOGLOBIN (BEAKER) (test code = 9.5 GM/DL 11.2-15.7 L 410) HEMATOCRIT (BEAKER) (test code = 30.5 % 34.1-44.9 L 411) MEAN CORPUSCULAR VOLUME (BEAKER) 95.0 fL 79.4-94.8 H (test code = 753) MEAN CORPUSCULAR HEMOGLOBIN 29.6 pg 25.6-32.2 (BEAKER) (test code = 751) MEAN CORPUSCULAR HEMOGLOBIN CONC 31.1 GM/DL 32.2-35.5 L (BEAKER) (test code = 752) RED CELL DISTRIBUTION WIDTH 13.7 % 11.7-14.4 (BEAKER) (test code = 412) PLATELET COUNT (BEAKER) (test 142 K/CU MM 150-450 L code = 756) MEAN PLATELET VOLUME (BEAKER) 10.4 fL 9.4-12.3 (test code = 754) NUCLEATED RED BLOOD CELLS 0 /100 WBC 0-0 (BEAKER) (test code = 413) [id number] 08:48:00 Test Item Value Reference Range Interpretation Comments ACTIVATED CLOTTING TIME 268 sec TEST ED AT [place] [address] (BEAKER) (test code = [facility]ulkadir [facility] 441) [id number] 08:48:00 Test Item Value Reference Range Interpretation Comments ACTIVATED CLOTTING TIME 230 sec TEST ED AT [place] [address] (BEAKER) (test code = [place] [address]) [id number] 04:57:00 Test Item Value Reference Range Interpretation Comments MAGNESIUM (BEAKER) (test code = 2.1 mg/dL 1.6-2.6 627) BASIC METABOLIC [id number] 04:57:00 Test Item Value Reference Range Interpretation Comments SODIUM (BEAKER) 138 meq/L 136-145 (test code = 381) POTASSIUM (BEAKER) 4.1 meq/L 3.5-5.1 (test code = 379) CHLORIDE (BEAKER) 108 meq/L 98-107 H (test code = 382) CO2 (BEAKER) (test 25 meq/L 22-29 code = 355) BLOOD UREA NITROGEN 9 mg/dL 7-21 (BEAKER) (test code = 354) CREATININE (BEAKER) 0.64 mg/dL 0.57-1.25 (test code = 358) GLUCOSE RANDOM 88 mg/dL 70-105 (BEAKER) (test code = 652) CALCIUM (BEAKER) 8.8 mg/dL 8.4-10.2 (test code = 697) EGFR (BEAKER) (test 89 mL/min/1.73 ESTIMA MALORIE GFR IS code = 1092) sq m NOT ACCURATE CREATININE CLEARANCE IN PREDICTING GLOMERULAR FILTRATION RATE . ESTIMATED GFR I S NOT APPLICABLE FOR DIALYSIS PATIEN TS. CBC W/PLT COUNT & AUTO [id number] 04:38:00 Test Item Value Reference Range Interpretation Comments WHITE BLOOD CELL COUNT (BEAKER) 4.1 K/ L 3.5-10.5 (test code = 775) RED BLOOD CELL COUNT (BEAKER) 3.11 M/ L 3.93-5.22 L (test code = 761) HEMOGLOBIN (BEAKER) (test code = 9.3 GM/DL 11.2-15.7 L 410) HEMATOCRIT (BEAKER) (test code = 29.7 % 34.1-44.9 L 411) MEAN CORPUSCULAR VOLUME (BEAKER) 95.5 fL 79.4-94.8 H (test code = 753) MEAN CORPUSCULAR HEMOGLOBIN 29.9 pg 25.6-32.2 (BEAKER) (test code = 751) MEAN CORPUSCULAR HEMOGLOBIN CONC 31.3 GM/DL 32.2-35.5 L (BEAKER) (test code = 752) RED CELL DISTRIBUTION WIDTH 14.1 % 11.7-14.4 (BEAKER) (test code = 412) PLATELET COUNT (BEAKER) (test 153 K/CU MM 150-450 code = 756) MEAN PLATELET VOLUME (BEAKER) 10.0 fL 9.4-12.3 (test code = 754) NUCLEATED RED BLOOD CELLS 0 /100 WBC 0-0 (BEAKER) (test code = 413) NEUTROPHILS RELATIVE PERCENT 59 % (BEAKER) (test code = 429) LYMPHOCYTES RELATIVE PERCENT 22 % (BEAKER) (test code = 430) MONOCYTES RELATIVE PERCENT 10 % (BEAKER) (test code = 431) EOSINOPHILS RELATIVE PERCENT 7 % (BEAKER) (test code = 432) BASOPHILS RELATIVE PERCENT 1 % (BEAKER) (test code = 437) NEUTROPHILS ABSOLUTE COUNT 2.41 K/ L 1.56-6.13 (BEAKER) (test code = 670) LYMPHOCYTES ABSOLUTE COUNT 0.90 K/ L 1.18-3.74 L (BEAKER) (test code = 414) MONOCYTES ABSOLUTE COUNT (BEAKER) 0.39 K/ L 0.24-0.36 H (test code = 415) EOSINOPHILS ABSOLUTE COUNT 0.30 K/ L 0.04-0.36 (BEAKER) (test code = 416) BASOPHILS ABSOLUTE COUNT (BEAKER) 0.04 K/ L 0.01-0.08 (test code = 417) IMMATURE GRANULOCYTES-RELATIVE 1 % 0-1 PERCENT (BEAKER) (test code = 2801) TROPONIN [id number] 06:37:00 Test Item Value Reference Range Interpretation Comments TROPONIN I (BEAKER) (test code = 15.81 ng/mL 0.00-0.03 HH 397) Troponin I (TnI) levels must be interpreted in the context of the presenting symptoms and the clinical findings. Elevated TnI levels indicate myocardial damage, but are not specific for ischemic heart disease. Elevated TnI levels are seen in patients with other cardiac conditions (including myocarditis and congestive heart failure), and slight TnI elevations occur in patients with other conditions, including sepsis, renal failure, acidosis, acute neurological disease, and persistent tachyarrhythmia.[id number] 05:12:00 Test Item Value Reference Range Interpretation Comments MAGNESIUM (BEAKER) (test code = 1.9 mg/dL 1.6-2.6 627) BASIC METABOLIC [id number] 05:12:00 Test Item Value Reference Range Interpretation Comments SODIUM (BEAKER) 139 meq/L 136-145 (test code = 381) POTASSIUM (BEAKER) 3.6 meq/L 3.5-5.1 (test code = 379) CHLORIDE (BEAKER) 110 meq/L 98-107 H (test code = 382) CO2 (BEAKER) (test 24 meq/L 22-29 code = 355) BLOOD UREA NITROGEN 9 mg/dL 7-21 (BEAKER) (test code = 354) CREATININE (BEAKER) 0.63 mg/dL 0.57-1.25 (test code = 358) GLUCOSE RANDOM 90 mg/dL 70-105 (BEAKER) (test code = 652) CALCIUM (BEAKER) 8.3 mg/dL 8.4-10.2 L (test code = 697) EGFR (BEAKER) (test 91 mL/min/1.73 ESTIMA MALORIE GFR IS code = 1092) sq m NOT ACCURATE CREATININE CLEARANCE IN PREDICTING GLOMERULAR FILTRATION RATE . ESTIMATED GFR I S NOT APPLICABLE FOR DIALYSIS PATIEN TS. CBC W/PLT COUNT & AUTO [id number] 03:48:00 Test Item Value Reference Range Interpretation Comments WHITE BLOOD CELL COUNT (BEAKER) 4.5 K/ L 3.5-10.5 (test code = 775) RED BLOOD CELL COUNT (BEAKER) 2.93 M/ L 3.93-5.22 L (test code = 761) HEMOGLOBIN (BEAKER) (test code = 8.9 GM/DL 11.2-15.7 L 410) HEMATOCRIT (BEAKER) (test code = 27.9 % 34.1-44.9 L 411) MEAN CORPUSCULAR VOLUME (BEAKER) 95.2 fL 79.4-94.8 H (test code = 753) MEAN CORPUSCULAR HEMOGLOBIN 30.4 pg 25.6-32.2 (BEAKER) (test code = 751) MEAN CORPUSCULAR HEMOGLOBIN CONC 31.9 GM/DL 32.2-35.5 L (BEAKER) (test code = 752) RED CELL DISTRIBUTION WIDTH 14.1 % 11.7-14.4 (BEAKER) (test code = 412) PLATELET COUNT (BEAKER) (test 174 K/CU MM 150-450 code = 756) MEAN PLATELET VOLUME (BEAKER) 10.4 fL 9.4-12.3 (test code = 754) NUCLEATED RED BLOOD CELLS 0 /100 WBC 0-0 (BEAKER) (test code = 413) NEUTROPHILS RELATIVE PERCENT 67 % (BEAKER) (test code = 429) LYMPHOCYTES RELATIVE PERCENT 20 % (BEAKER) (test code = 430) MONOCYTES RELATIVE PERCENT 9 % (BEAKER) (test code = 431) EOSINOPHILS RELATIVE PERCENT 3 % (BEAKER) (test code = 432) BASOPHILS RELATIVE PERCENT 1 % (BEAKER) (test code = 437) NEUTROPHILS ABSOLUTE COUNT 3.00 K/ L 1.56-6.13 (BEAKER) (test code = 670) LYMPHOCYTES ABSOLUTE COUNT 0.91 K/ L 1.18-3.74 L (BEAKER) (test code = 414) MONOCYTES ABSOLUTE COUNT (BEAKER) 0.39 K/ L 0.24-0.36 H (test code = 415) EOSINOPHILS ABSOLUTE COUNT 0.15 K/ L 0.04-0.36 (BEAKER) (test code = 416) BASOPHILS ABSOLUTE COUNT (BEAKER) 0.04 K/ L 0.01-0.08 (test code = 417) IMMATURE GRANULOCYTES-RELATIVE 0 % 0-1 PERCENT (BEAKER) (test code = 2801) TROPONIN [id number] 15:13:00 Test Item Value Reference Range Interpretation Comments TROPONIN I (BEAKER) (test code = 19.87 ng/mL 0.00-0.03 397) Troponin I (TnI) levels must be interpreted in the context of the presenting symptoms and the clinical findings. Elevated TnI levels indicate myocardial damage, but are not specific for ischemic heart disease. Elevated TnI levels are seen in patients with other cardiac conditions (including myocarditis and congestive heart failure), and slight TnI elevations occur in patients with other conditions, including sepsis, renal failure, acidosis, acute neurological disease, and persistent tachyarrhythmia.[id number] 06:22:00 Test Item Value Reference Range Interpretation Comments MAGNESIUM (BEAKER) (test code = 2.0 mg/dL 1.6-2.6 627) BASIC METABOLIC [id number] 06:22:00 Test Item Value Reference Range Interpretation Comments SODIUM (BEAKER) 136 meq/L 136-145 (test code = 381) POTASSIUM (BEAKER) 4.0 meq/L 3.5-5.1 (test code = 379) CHLORIDE (BEAKER) 107 meq/L 98-107 (test code = 382) CO2 (BEAKER) (test 23 meq/L 22-29 code = 355) BLOOD UREA NITROGEN 11 mg/dL 7-21 (BEAKER) (test code = 354) CREATININE (BEAKER) 0.63 mg/dL 0.57-1.25 (test code = 358) GLUCOSE RANDOM 100 mg/dL 70-105 (BEAKER) (test code = 652) CALCIUM (BEAKER) 8.6 mg/dL 8.4-10.2 (test code = 697) EGFR (BEAKER) (test 91 mL/min/1.73 ESTIMA MALORIE GFR IS code = 1092) sq m NOT ACCURATE CREATININE CLEARANCE IN PREDICTING GLOMERULAR FILTRATION RATE . ESTIMATED GFR I S NOT APPLICABLE FOR DIALYSIS PATIEN TS. CBC W/PLT COUNT & AUTO [id number] 05:20:00 Test Item Value Reference Range Interpretation Comments WHITE BLOOD CELL COUNT (BEAKER) 5.6 K/ L 3.5-10.5 (test code = 775) RED BLOOD CELL COUNT (BEAKER) 3.15 M/ L 3.93-5.22 L (test code = 761) HEMOGLOBIN (BEAKER) (test code = 9.3 GM/DL 11.2-15.7 L 410) HEMATOCRIT (BEAKER) (test code = 30.0 % 34.1-44.9 L 411) MEAN CORPUSCULAR VOLUME (BEAKER) 95.2 fL 79.4-94.8 H (test code = 753) MEAN CORPUSCULAR HEMOGLOBIN 29.5 pg 25.6-32.2 (BEAKER) (test code = 751) MEAN CORPUSCULAR HEMOGLOBIN CONC 31.0 GM/DL 32.2-35.5 L (BEAKER) (test code = 752) RED CELL DISTRIBUTION WIDTH 13.7 % 11.7-14.4 (BEAKER) (test code = 412) PLATELET COUNT (BEAKER) (test 194 K/CU MM 150-450 code = 756) MEAN PLATELET VOLUME (BEAKER) 10.0 fL 9.4-12.3 (test code = 754) NUCLEATED RED BLOOD CELLS 0 /100 WBC 0-0 (BEAKER) (test code = 413) NEUTROPHILS RELATIVE PERCENT 75 % (BEAKER) (test code = 429) LYMPHOCYTES RELATIVE PERCENT 16 % (BEAKER) (test code = 430) MONOCYTES RELATIVE PERCENT 8 % (BEAKER) (test code = 431) EOSINOPHILS RELATIVE PERCENT 1 % (BEAKER) (test code = 432) BASOPHILS RELATIVE PERCENT 0 % (BEAKER) (test code = 437) NEUTROPHILS ABSOLUTE COUNT 4.22 K/ L 1.56-6.13 (BEAKER) (test code = 670) LYMPHOCYTES ABSOLUTE COUNT 0.89 K/ L 1.18-3.74 L (BEAKER) (test code = 414) MONOCYTES ABSOLUTE COUNT (BEAKER) 0.42 K/ L 0.24-0.36 H (test code = 415) EOSINOPHILS ABSOLUTE COUNT 0.03 K/ L 0.04-0.36 L (BEAKER) (test code = 416) BASOPHILS ABSOLUTE COUNT (BEAKER) 0.02 K/ L 0.01-0.08 (test code = 417) IMMATURE GRANULOCYTES-RELATIVE 0 % 0-1 PERCENT (BEAKER) (test code = 2801) RAD, CHEST, 1 VIEW, NON [id number] 21:08:00Reason for exam:->chest painShould this be performed at the bedside?->YesFINAL REPORT INDICATION: chest pain COMPARISON: None TECHNIQUE: Single frontal view of the chest. FINDINGS: Lungs and pleura: Mild bilateral interstitial opacities. Linear atelectasis at the left lateral lung. Obscuration of the left costophrenic sulcus is favored to be secondary to prominent pericardial fat pad. No effusion.Heart and mediastinum: Central vascular prominence. Cardiac silhouette is normal in size. Unremarkable mediastinal contours.Osseous structures: No acute abnormality.Other: The sided vascular stent along the expected course of the left common carotid artery.. IMPRESSION: Interstitial opacities and mild central vascular prominence. In the appropriate clinical setting, represent interstitial edema Signed: Danni Briceno MDReport Verified Date/Time: 07/17/2018 21:08:26 Reading Location: [facility] C013V Neuro Reading Room TROPONIN [id number] 19:33:00 Test Item Value Reference Range Interpretation Comments TROPONIN I (BEAKER) (test code = 1.47 ng/mL 0.00-0.03 397) Troponin I (TnI) levels must be interpreted in the context of the presenting symptoms and the clinical findings. Elevated TnI levels indicate myocardial damage, but are not specific for ischemic heart disease. Elevated TnI levels are seen in patients with other cardiac conditions (including myocarditis and congestive heart failure), and slight TnI elevations occur in patients with other conditions, including sepsis, renal failure, acidosis, acute neurological disease, and persistent tachyarrhythmia.LIPID [id number] 19:25:00 Test Item Value Reference Range Interpretation Comments TRIGLYCERIDES (BEAKER) (test code = 74 mg/dL 540) CHOLESTEROL (BEAKER) (test code = 425 mg/dL 631) HDL CHOLESTEROL (BEAKER) (test code 53 mg/dL = 976) LDL CHOLESTEROL CALCULATED (BEAKER) 357 mg/dL (test code = 633) Triglyceride Reference Range: Low Risk <150 Borderline 150-199 High Risk 200-499 Very High Risk >=500Cholesterol Reference Range: Low Risk <200 Borderline 200-239 High Risk >240HDL Cholesterol Reference Range: Low Risk >=60 High Risk <40LDL Cholesterol Reference Range: Optimal <100 Near Optimal 100-129 Borderline 130-159 High 160-189 Very High >=[id number] 19:22:00 Test Item Value Reference Range Interpretation Comments GLUCOSE RANDOM (BEAKER) (test code 126 mg/dL 70-105 H = 652) BUN AND [id number] 19:22:00 Test Item Value Reference Range Interpretation Comments BLOOD UREA NITROGEN 14 mg/dL 7-21 (BEAKER) (test code = 354) CREATININE (BEAKER) 0.61 mg/dL 0.57-1.25 (test code = 358) EGFR (BEAKER) (test 94 mL/min/1.73 ESTIMA MALORIE GFR IS code = 1092) sq m NOT ACCURATE CREATININE CLEARANCE IN PREDICTING GLOMERULAR FILTRATION RATE . ESTIMATED GFR I S NOT APPLICABLE FOR DIALYSIS PATIEN TS. [id number] 19:22:00 Test Item Value Reference Range Interpretation Comments SODIUM (BEAKER) (test code = 381) 137 meq/L 136-145 POTASSIUM (BEAKER) (test code = 4.0 meq/L 3.5-5.1 379) CHLORIDE (BEAKER) (test code = 382) 104 meq/L 98-107 CO2 (BEAKER) (test code = 355) 26 meq/L 22-29 HEPATIC FUNCTION [id number] 19:22:00 Test Item Value Reference Range Interpretation Comments TOTAL PROTEIN (BEAKER) (test code = 6.5 gm/dL 6.0-8.3 770) ALBUMIN (BEAKER) (test code = 1145) 4.0 g/dL 3.5-5.0 BILIRUBIN TOTAL (BEAKER) (test code 0.4 mg/dL 0.2-1.2 = 377) BILIRUBIN DIRECT (BEAKER) (test 0.2 mg/dL 0.1-0.5 code = 706) ALKALINE PHOSPHATASE (BEAKER) (test 65 U/L 40-150 code = 346) AST (SGOT) (BEAKER) (test code = 42 U/L 5-34 H 353) ALT (SGPT) (BEAKER) (test code = 23 U/L 6-55 347) [id number] 19:18:00 Test Item Value Reference Range Interpretation Comments PROTIME (BEAKER) (test code = 14.2 seconds 11.7-14.7 759) INR (BEAKER) (test code = 370) 1.1 <=5.9 PARTIAL THROMBOPLASTIN TIME 98.7 seconds 22.5-36.0 H (BEAKER) (test code = 760) RECOMMENDED COUMADIN/WARFARIN INR THERAPY RANGESSTANDARD DOSE: 2.0 - 3.0 Includes: PROPHYLAXIS forvenous thrombosis, systemic embolization; TREATMENT for venous thrombosis and/or pulmonary embolus.HIGH RISK: Target INR is 2.5-3.5 for patients with mechanical heart valves.CBC W/PLT COUNT & AUTO DIFFERENTIAL 2018-07-17 19:08:00 Test Item Value Reference Range Interpretation Comments WHITE BLOOD CELL COUNT (BEAKER) 7.0 K/ L 3.5-10.5 (test code = 775) RED BLOOD CELL COUNT (BEAKER) 3.65 M/ L 3.93-5.22 L (test code = 761) HEMOGLOBIN (BEAKER) (test code = 11.0 GM/DL 11.2-15.7 L 410) HEMATOCRIT (BEAKER) (test code = 34.2 % 34.1-44.9 411) MEAN CORPUSCULAR VOLUME (BEAKER) 93.7 fL 79.4-94.8 (test code = 753) MEAN CORPUSCULAR HEMOGLOBIN 30.1 pg 25.6-32.2 (BEAKER) (test code = 751) MEAN CORPUSCULAR HEMOGLOBIN CONC 32.2 GM/DL 32.2-35.5 (BEAKER) (test code = 752) RED CELL DISTRIBUTION WIDTH 13.7 % 11.7-14.4 (BEAKER) (test code = 412) PLATELET COUNT (BEAKER) (test 244 K/CU MM 150-450 code = 756) MEAN PLATELET VOLUME (BEAKER) 10.0 fL 9.4-12.3 (test code = 754) NUCLEATED RED BLOOD CELLS 0 /100 WBC 0-0 (BEAKER) (test code = 413) NEUTROPHILS RELATIVE PERCENT 81 % (BEAKER) (test code = 429) LYMPHOCYTES RELATIVE PERCENT 13 % (BEAKER) (test code = 430) MONOCYTES RELATIVE PERCENT 5 % (BEAKER) (test code = 431) EOSINOPHILS RELATIVE PERCENT 0 % (BEAKER) (test code = 432) BASOPHILS RELATIVE PERCENT 1 % (BEAKER) (test code = 437) NEUTROPHILS ABSOLUTE COUNT 5.66 K/ L 1.56-6.13 (BEAKER) (test code = 670) LYMPHOCYTES ABSOLUTE COUNT 0.90 K/ L 1.18-3.74 L (BEAKER) (test code = 414) MONOCYTES ABSOLUTE COUNT (BEAKER) 0.33 K/ L 0.24-0.36 (test code = 415) EOSINOPHILS ABSOLUTE COUNT 0.03 K/ L 0.04-0.36 L (BEAKER) (test code = 416) BASOPHILS ABSOLUTE COUNT (BEAKER) 0.04 K/ L 0.01-0.08 (test code = 417) IMMATURE GRANULOCYTES-RELATIVE 0 % 0-1 PERCENT (BEAKER) (test code = 2801) [id number] 18:59:00 Test Item Value Reference Range Interpretation Comments ACTIVATED CLOTTING TIME 373 sec TEST ED AT [place] [address] (BEAKER) (test code = [facility] 441) [id number] 18:52:00 Test Item Value Reference Range Interpretation Comments ACTIVATED CLOTTING TIME 158 sec TEST ED AT [place] [address] (BEAKER) (test code = [facility] 441) [id number]
[2020-09-09] MEDS ORDERED: ALBUTEROL INHALER 60 PUFF/8 GM IH ONE (21:05)
--- NOTE | 2020-09-09 21:19 | RAD REPORT ---
EXAM DESCRIPTION: Todd Single View09/09/2020 9:12 pm CLINICAL HISTORY: Cough COMPARISON: 2019 FINDINGS: Moderate to marked right and moderate left pulmonary opacities. The heart is borderline e nlarged IMPRESSION: Xoelpork-tg-yvannu right and moderate left pulmonary opacities probably pneumonia
[2020-09-09 21:36] LABS: Absolute Lymphocytes (CBC) 0.4 K/uL (0.7-4.9); Basophils % 0.3 % (0-1.3); Lymphocytes % 6.5 % (15.3-44.8); MPV 7.3 fL (7.6-11.3); RBC Red Blood Cell Count 3.28 M/uL (3.86-4.86)
[2020-09-09 21:57] LABS: ALT/SGPT 32 U/L (12-78); AST/SGOT 55 U/L (15-37); Albumin 2.6 g/dL (3.4-5.0); Alkaline Phosphatase 97 U/L (45-117); BUN Blood Urea Nitrogen 10 mg/dL (7-18); Bicarbonate 24 mmol/L (21-32); Bilirubin Direct 0.1 mg/dL (0-0.2); Bilirubin Total 0.4 mg/dL (0.2-1.0); Glucose Level 113 mg/dL (74-106); Magnesium 2.1 mg/dL (1.8-2.4); NT PRO-BNP 1573 pg/mL (<450); Potassium 3.5 mmol/L (3.5-5.1); Protein, Total 6.8 g/dL (6.4-8.2); Sodium Level 139 mmol/L (136-145); Troponin (Emerg Dept Use Only) < 0.02 ng/mL (0.0-0.045)
[2020-09-09 22:00] LABS: Urine Blood NEGATIVE (Negative); Urine Glucose NEGATIVE (Negative); Urine Protein 1+ (NEG); Urine Specific Gravity 1.015 (1.005-1.030); Urine pH 6.5 (5.0-7.0)
[2020-09-09 22:07] LABS: Protime INR 1.26
[2020-09-09] MEDS ORDERED: AZITHROMYCIN 500 MG INJ IVPB ONE (22:45)
[2020-09-09] MEDS ORDERED: NA CHLORIDE 0.9% 250 ML ONE (22:45)
[2020-09-09] MEDS ORDERED: CEFTRIAXONE/SWI 1gm 1 GM/10 ML SYR ONE (22:45)
[2020-09-09] MEDS ORDERED: WATER FOR INJ,STERILE 10 ML ONE (22:46)
--- NOTE | 2020-09-09 23:15 | ER ---
Nurse's Notes [facility] Name: Fidelina Flores Age: 85 yrs Sex: Female : 1935 Arrival Date: 09/09/2020 Time: 20:13 Bed 13 Private MD: Diagnosis: Coronavirus infection, unspecified;Pneumonia;Hypoxia Presentation: 09/09 20:27 Chief complaint: Patient states: Covid positive for 8 days. Started having weakness, ll1 cough, SOB for the past 5 days. Was seen at [place] yesterday, paperwork at bedside. EMS states: O2 sat. 81-85% RA at home. Other VSS. Sat up to 95% with 3 L NC. Coronavirus screen: Client denies travel out of the [place] in the last 14 days. congestion, cough unrelated to allergies, difficulty breathing, fatigue, shortness of breath, Client presents with at least one sign or symptom that may indicate coronavirus-19. Standard/surgical mask placed on the client. Ebola Screen: Patient denies travel to an Ebola-affected area in the 21 days before illness onset. Initial Sepsis Screen: Does the patient meet any 2 criteria? No. Patient's initial sepsis screen is negative. Does the patient have a suspected source of infection? Yes: Productive cough/pneumonia. Risk Assessment: Do you want to hurt yourself or someone else? Patient reports no desire to harm self or others. Onset of symptoms was September 01, 2020. 20:27 Method Of Arrival: EMS: [facility] 20:27 Acuity: PABLO 2 ll1 Historical: - Allergies: 20:31 No Known Allergies; ll1 - Home Meds: 09/10 01:14 atorvastatin 40 mg oral tab 1 tab once daily [Active]; metoprolol succinate 25 mg oral sf Tb24 1 tab once daily [Active]; sertraline 50 mg oral tab 1 tab once daily [Active]; sodium chloride 1 gram oral tab [Active]; alprazolam 0.5 mg Oral tab as needed [Active]; gabapentin 100 mg oral cap 2 caps daily [Active]; temazepam 30 mg Oral cap 1 cap nightly [Active]; - PMHx: 09/09 20:39 CAD; ll1 - PSHx: 20:39 Hysterectomy; CABG; Heart stents; ll1 - Immunization history:: Flu vaccine is not up to date. - Social history:: Smoking status: Patient denies any tobacco usage or history of. Screenin:41 Abuse screen: Denies threats or abuse. Nutritional screening: No deficits noted. vg1 Tuberculosis screening: No symptoms or risk factors identified. Fall Risk Fall in past 12 months (25 points). No secondary diagnosis (0 pts). IV access (20 points). Ambulatory Aid- Crutches/Cane/Walker (15 pts). Gait- Weak (10 pts.). Mental Status- Oriented to own ability (0 pts). Total Pinto Fall Scale indicates High Risk Score (45 or more points). Fall prevention measures have been instituted. Side Rails Up X 2 Placed Close to Nursing Station Family Present and informed to notify staff if the need to leave the bedside. Assessment: 20:38 General: Appears in no apparent distress. uncomfortable, Behavior is calm, cooperative. vg1 Pain: Denies pain. Neuro: Level of Consciousness is awake, alert, obeys commands, Oriented to person, place, time, situation. Cardiovascular: Patient's skin is warm and dry. Respiratory: Airway is patent Respiratory effort is even, unlabored, Respiratory pattern is regular, symmetrical, Breath sounds with crackles bilaterally. Respiratory: Reports shortness of breath at rest on exertion cough that is. GI: Patient currently denies diarrhea, nausea, vomiting. : No signs and/or symptoms were reported regarding the genitourinary system. EENT: No signs and/or symptoms were reported regarding the EENT system. Derm: Skin is intact, Skin is pink, warm \\T\\ dry. Musculoskeletal: Circulation, motion, and sensation intact. 22:41 Reassessment: Patient appears in no apparent distress at this time. No changes from vg1 previously documented assessment. Patient and/or family updated on plan of care and expected duration. Pain level reassessed. Patient is alert, oriented x 3, equal unlabored respirations, skin warm/dry/pink. 09/10 00:08 Reassessment: Critical Results reported by Tracey in lab, [facility] [id number]. Provider notified.vg1 01:10 General: Appears in no apparent distress. comfortable, Behavior is calm, cooperative. sf Pain: Denies pain. Neuro: Level of Consciousness is awake, alert, Oriented to person, place, time, situation. Cardiovascular: Patient's skin is warm and dry. Respiratory: Reports shortness of breath at rest on exertion cough that is Airway is patent Respiratory effort is even, unlabored, Respiratory pattern is regular, symmetrical. GI: No signs and/or symptoms were reported involving the gastrointestinal system. Patient currently denies diarrhea, nausea, vomiting. : No signs and/or symptoms were reported regarding the genitourinary system. Vital Signs: 09/09 20:27 BP 126 / 56; Pulse 85; Resp 18; Temp 98.2; Pulse Ox 94% on 3 lpm NC; Weight 61.23 kg; ll1 Height 5 ft. 3 in. (160.02 cm); Pain 0/10; 20:40 BP 127 / 55; Pulse 80; Resp 20; Pulse Ox 97% on 4 lpm NC; vg1 21:00 BP 128 / 56; Pulse 83; Resp 20; Pulse Ox 97% on 2 lpm NC; vg1 22:00 BP 128 / 56; Pulse 83; Resp 24; Pulse Ox 98% on 2 lpm NC; vg1 23:00 BP 137 / 81; Pulse 90; Resp 20; Temp 98.2; Pulse Ox 96% on 3 lpm NC; vg1 09/10 00:00 BP 127 / 60; Pulse 85; Resp 20; Pulse Ox 98% ; sf 01:00 BP 137 / 64; Pulse 88; Resp 20; Pulse Ox 97% ; sf 01:41 BP 130 / 60; Pulse 87; Resp 22; Pulse Ox 97% on 4 lpm NC; sf 09/09 20:27 Body Mass Index 23.91 (61.23 kg, 160.02 cm) ll1 ED Course: 09/09 20:13 Patient arrived in ED. cl3 20:19 Chuck Doyle MD is Attending Physician. mh7 20:20 Eve Pleitez, RN is Primary Nurse. vg1 20:30 Triage completed. ll1 20:31 Arm band placed on Patient placed in an exam room, on a stretcher. ll1 20:41 Patient has correct armband on for positive identification. Bed in low position. Call vg1 light in reach. Side rails up X2. Adult w/ patient. 20:42 Oxygen administration via nasal cannula \\T\\ 4L/min. vg1 21:03 EKG done, by ED staff, reviewed by Chuck Doyle MD. vg1 21:12 XRAY Chest (1 view) In Process Unspecified. EDMS 22:40 Inserted saline lock: 20 gauge in right antecubital area, using aseptic technique. sf 23:14 Beronica Valladares MD is Hospitalizing Provider. [facility] 23:30 Muñoz cath inserted, using sterile technique, 16 Fr., by ga, to gravity drainage, jp3 returned clear yellow urine. Patient tolerated well. 23:54 COVID swab sent to lab. jp3 09/10 00:25 COVID-19 : Document "Date of Symptom Onset" if Symptomatic. Sent. sf 00:25 CBC with Diff Sent. sf 00:25 Basic Metabolic Panel Sent. sf 00:25 LFT's Sent. sf 00:25 Magnesium Sent. sf 00:25 NT PRO-BNP Sent. sf 00:27 Report given to OLIVIER El. vg1 01:11 CT Chest For PE Angio In Process Unspecified. EDMS 02:00 No provider procedures requiring assistance completed. IV is patent, is intact, with sf fluids infusing freely, Patient admitted, IV remains in place. Administered Medications: 09/09 21:09 Drug: Albuterol HFA Inhaler 2 puffs Route: Inhalation; vg1 22:43 Drug: Rocephin - (cefTRIAXone) 1 grams Route: IVPB; Infused Over: 30 mins; Site: right vg1 antecubital; 22:44 Follow up: IV Status: Completed infusion; IV Intake: 10ml ; Medication in syringe was vg1 used 22:44 Drug: Zithromax (azithromycin) 500 mg Route: IVPB; Infused Over: 1 hrs; Site: right vg1 antecubital; 23:47 Follow up: Response: No adverse reaction; IV Status: Completed infusion; IV Intake: vg1 250ml 23:12 Drug: Zofran (Ondansetron) 4 mg Route: IVP; Site: right antecubital; vg1 09/10 01:25 Follow up: Response: No adverse reaction; Marked relief of symptoms 09/09 23:45 Drug: Decadron - Dexamethasone 6 mg Route: IVP; Site: right antecubital; vg1 09/10 01:25 Follow up: Response: No adverse reaction; Marked relief of symptoms sf Intake: 09/09 22:44 IV: 10ml; Total: 10ml. vg1 23:47 IV: 250ml; Total: 260ml. vg1 Outcome: 23:15 Decision to Hospitalize by Provider. 7 09/10 01:56 Admitted to Tele accompanied by nurse, via stretcher, room 431, with oxygen, Report sf called to OLIVIER Clark Condition: stable Instructed on the need for admit. 02:20 Patient left the ED. sf Signatures: Dispatcher [employer] EDMS Marcelino Brand Charde cl3 Garcia, Victoria, OLIVIER RN 1 Pee Kelley RN RN 1 Chuck Doyle MD MD 7 Nikko Salmon RN RN sf Corrections: (The following items were deleted from the chart) 09/09 20:39 20:31 PSHx: None; [facility]
--- NOTE | 2020-09-09 23:15 | EDPHYS ---
Physician Documentation [facility] Name: Fidelina Flores Age: 85 yrs Sex: Female : 1935 Arrival Date: 09/09/2020 Time: 20:13 Bed 13 Private MD: ED Physician Chuck Doyle HPI: 09/09 20:58 This 85 yrs old Female presents to ER via EMS with complaints of Breathing mh7 Difficulty. 20:58 The patient has shortness of breath at rest. Onset: The symptoms/episode began/occurred mh7 5 day(s) ago. Duration: The symptoms are intermittent, with no pattern. The patient's shortness of breath is aggravated by coughing, exertion, light activity, supine position, is alleviated by nothing. 20:59 Associated signs and symptoms: Pertinent positives: non-productive cough, generalized mh7 fatigue/weakness, Pertinent negatives: chest pain, productive cough, diaphoresis, dizziness, fever, hemoptysis, loss of consciousness, nausea, numbness in extremities, visual changes, vomiting. Severity of symptoms: At their worst the symptoms were moderate last night, in the emergency department the symptoms are unchanged. The patient has been recently seen by a physician: yesterday, at an outside ED. Historical: - Allergies: 20:31 No Known Allergies; ll1 - Home Meds: 09/10 01:14 atorvastatin 40 mg oral tab 1 tab once daily [Active]; metoprolol succinate 25 mg oral sf Tb24 1 tab once daily [Active]; sertraline 50 mg oral tab 1 tab once daily [Active]; sodium chloride 1 gram oral tab [Active]; alprazolam 0.5 mg Oral tab as needed [Active]; gabapentin 100 mg oral cap 2 caps daily [Active]; temazepam 30 mg Oral cap 1 cap nightly [Active]; - PMHx: 09/09 20:39 CAD; ll1 - PSHx: 20:39 Hysterectomy; CABG; Heart stents; ll1 - Immunization history:: Flu vaccine is not up to date. - Social history:: Smoking status: Patient denies any tobacco usage or history of. ROS: 20:59 Constitutional: Negative for fever, chills, and weight loss, Eyes: Negative for injury, mh7 pain, redness, and discharge, ENT: Negative for injury, pain, and discharge, Neck: Negative for injury, pain, and swelling, Cardiovascular: Negative for chest pain, palpitations, and edema. 20:59 Back: Negative for injury and pain, : Negative for injury, bleeding, discharge, and swelling, MS/Extremity: Negative for injury and deformity, Skin: Negative for injury, rash, and discoloration, Neuro: Negative for headache, weakness, numbness, tingling, and seizure, Psych: Negative for depression, anxiety, suicide ideation, homicidal ideation, and hallucinations, Allergy/Immunology: Negative for hives, rash, and allergies, Endocrine: Negative for neck swelling, polydipsia, polyuria, polyphagia, and marked weight changes, Hematologic/Lymphatic: Negative for swollen nodes, abnormal bleeding, and unusual bruising. 20:59 Abdomen/GI: Positive for anorexia, Negative for abdominal pain, nausea and vomiting, nausea, vomiting, and diarrhea, constipation, abdominal cramps, abdominal distension. Exam: 20:59 Constitutional: This is a well developed, well nourished patient who is awake, alert, mh7 and in no acute distress. Head/Face: Normocephalic, atraumatic. Eyes: Pupils equal round and reactive to light, extra-ocular motions intact. Lids and lashes normal. Conjunctiva and sclera are non-icteric and not injected. Cornea within normal limits. Periorbital areas with no swelling, redness, or edema. Neck: Trachea midline, no thyromegaly or masses palpated, and no cervical lymphadenopathy. Supple, full range of motion without nuchal rigidity, or vertebral point tenderness. No Meningismus. Chest/axilla: Normal chest wall appearance and motion. Nontender with no deformity. No lesions are appreciated. Cardiovascular: Regular rate and rhythm with a normal S1 and S2. No gallops, murmurs, or rubs. Normal PMI, no JVD. No pulse deficits. 20:59 Abdomen/GI: Soft, non-tender, with normal bowel sounds. No distension or tympany. No guarding or rebound. No evidence of tenderness throughout. Back: No spinal tenderness. No costovertebral tenderness. Full range of motion. Skin: Warm, dry with normal turgor. Normal color with no rashes, no lesions, and no evidence of cellulitis. MS/ Extremity: Pulses equal, no cyanosis. Neurovascular intact. Full, normal range of motion. Neuro: Awake and alert, GCS 15, oriented to person, place, time, and situation. Cranial nerves II-XII grossly intact. Motor strength 5/5 in all extremities. Sensory grossly intact. Cerebellar exam normal. Normal gait. Psych: Awake, alert, with orientation to person, place and time. Behavior, mood, and affect are within normal limits. 20:59 Respiratory: the patient does not display signs of respiratory distress, Respirations: normal, Breath sounds: rales, that are mild, are scattered, rhonchi, that are mild, are scattered, Respiratory rate: 20 Vital Signs: 20:27 BP 126 / 56; Pulse 85; Resp 18; Temp 98.2; Pulse Ox 94% on 3 lpm NC; Weight 61.23 kg; ll1 Height 5 ft. 3 in. (160.02 cm); Pain 0/10; 20:40 BP 127 / 55; Pulse 80; Resp 20; Pulse Ox 97% on 4 lpm NC; vg1 21:00 BP 128 / 56; Pulse 83; Resp 20; Pulse Ox 97% on 2 lpm NC; vg1 22:00 BP 128 / 56; Pulse 83; Resp 24; Pulse Ox 98% on 2 lpm NC; vg1 23:00 BP 137 / 81; Pulse 90; Resp 20; Temp 98.2; Pulse Ox 96% on 3 lpm NC; vg1 09/10 00:00 BP 127 / 60; Pulse 85; Resp 20; Pulse Ox 98% ; sf 01:00 BP 137 / 64; Pulse 88; Resp 20; Pulse Ox 97% ; sf 01:41 BP 130 / 60; Pulse 87; Resp 22; Pulse Ox 97% on 4 lpm NC; sf 09/09 20:27 Body Mass Index 23.91 (61.23 kg, 160.02 cm) ll1 MDM: 09/09 23:11 Differential diagnosis: Anemia Anxiety Reaction asthma, Bronchitis CHF exacerbation, mh7 Chronic Obstructive Pulmonary Disease Myocardial Infarction pneumonia, Pneumothorax Psychogenic pulmonary edema, reactive airway disease. Data reviewed: vital signs, nurses notes, lab test result(s), cardiac enzymes, CBC, electrolytes, urinalysis, EKG, radiologic studies, plain films. Data interpreted: Pulse oximetry: on 4L(s) per nasal canula, is 98 %. Interpretation: acceptable. Counseling: I had a detailed discussion with the patient and/or guardian regarding: the historical points, exam findings, and any diagnostic results supporting the discharge/admit diagnosis, lab results, radiology results, the need for further work-up and treatment in the hospital. Response to treatment: the patient's symptoms have mildly improved after treatment. 23:15 Patient medically screened. [facility] 09/09 20:37 Order name: Basic Metabolic Panel [facility] 09/09 20:37 Order name: CBC with Diff [facility] 09/09 20:37 Order name: LFT's [facility] 09/09 20:37 Order name: Magnesium [facility] 09/09 20:37 Order name: NT PRO-BNP [facility] 09/09 20:37 Order name: PT-INR; Complete Time: 23:03 [facility] 09/09 20:37 Order name: Troponin (emerg Dept Use Only); Complete Time: 23:03 [facility] 09/09 20:38 Order name: Basic Metabolic Panel; Complete Time: 23:03 [facility] 09/09 20:38 Order name: CBC with Automated Diff; Complete Time: 23:03 [facility] 09/09 20:38 Order name: Lactate; Complete Time: 21:54 [facility] 09/09 20:38 Order name: Procalcitonin; Complete Time: 23:03 [facility] 09/09 20:38 Order name: Liver (Hepatic) Function; Complete Time: 23:03 [facility] 09/09 20:38 Order name: Magnesium; Complete Time: 23:03 [facility] 09/09 20:38 Order name: NT PRO-BNP; Complete Time: 23:03 [facility] 09/09 20:37 Order name: XRAY Chest (1 view); Complete Time: 21:27 [facility] 09/09 21:55 Order name: Urine Dipstick--Ancillary (enter results); Complete Time: 23:03 [facility] 09/09 21:55 Order name: Blood Culture Adult (2) [facility] 09/09 21:55 Order name: Urine Culture [facility] 09/09 23:23 Order name: D-Dimer; Complete Time: 00:16 [facility] 09/09 23:49 Order name: COVID-19 : Document "Date of Symptom Onset" if Symptomatic. 1 09/10 00:13 Order name: CT Chest For PE Angio [facility] 09/10 01:09 Order name: SARS-COV-2 RT PCR [facility] 09/09 20:37 Order name: EKG; Complete Time: 20:38 09/09 20:37 Order name: Cardiac monitoring; Complete Time: 21:03 [facility] 09/09 20:37 Order name: EKG - Nurse/Tech; Complete Time: 21:03 [facility] 09/09 20:37 Order name: IV Saline Lock; Complete Time: 21:22 [facility] 09/09 20:37 Order name: Labs collected and sent; Complete Time: 21:22 [facility] 09/09 20:37 Order name: O2 Per Protocol; Complete Time: 20:43 09/09 20:37 Order name: O2 Sat Monitoring; Complete Time: 20:43 [facility] 09/09 20:37 Order name: Urine Dipstick-Ancillary (obtain specimen); Complete Time: 21:53 09/09 23:23 Order name: Muñoz; Complete Time: 23:36 09/10 01:23 Order name: CONS Physician Consult EDMS Administered Medications: 21:09 Drug: Albuterol HFA Inhaler 2 puffs Route: Inhalation; vg1 22:43 Drug: Rocephin - (cefTRIAXone) 1 grams Route: IVPB; Infused Over: 30 mins; Site: right vg1 antecubital; 22:44 Follow up: IV Status: Completed infusion; IV Intake: 10ml ; Medication in syringe was vg1 used 22:44 Drug: Zithromax (azithromycin) 500 mg Route: IVPB; Infused Over: 1 hrs; Site: right vg1 antecubital; 23:47 Follow up: Response: No adverse reaction; IV Status: Completed infusion; IV Intake: vg1 250ml 23:12 Drug: Zofran (Ondansetron) 4 mg Route: IVP; Site: right antecubital; vg1 09/10 01:25 Follow up: Response: No adverse reaction; Marked relief of symptoms sf 09/09 23:45 Drug: Decadron - Dexamethasone 6 mg Route: IVP; Site: right antecubital; vg1 09/10 01:25 Follow up: Response: No adverse reaction; Marked relief of symptoms sf Disposition: 09/09/20 23:15 Hospitalization ordered by Beronica Valladares for Inpatient Admission. Preliminary diagnosis are Coronavirus infection, unspecified, Pneumonia, Hypoxia. - Bed requested for Telemetry/MedSurg (Inpatient). - Status is Inpatient Admission. sf - Condition is Stable. - Problem is new. - Symptoms have improved. Signatures: Dispatcher [employer] EDMS Desi Dean RN RN mw Garcia, Victoria RN RN 1 Pee Kelley RN RN ll1 Chuck Doyle MD MD [facility] Nikko Salmon RN RN sf Johnson, Evan, PA PA ej Corrections: (The following items were deleted from the chart) 09/09 20:39 20:31 PSHx: None; ll1 ll1 09/10 00:13 09/09 23:49 CORONAVIRUS ordered. EDAK EDMS 09/10 01:28 09/09 23:15 Hospitalization Ordered by Beronica Valladares MD for Inpatient Admission. mw Preliminary diagnosis is Coronavirus infection, unspecified; Pneumonia; Hypoxia. Bed requested for Telemetry/MedSurg (Inpatient). Status is Inpatient Admission. Condition is Stable. Problem is new. Symptoms have improved. [facility] 09/10 01:30 01:30 C-Reactive Protein ordered. EDAK EDMS 01:30 01:30 C-Reactive Protein ordered. EDAK EDMS 01:30 01:30 Ferritin ordered. EDAK EDMS 01:30 01:30 Ferritin ordered. EDAK EDMS 02:20 01:28 09/09/2020 23:15 Hospitalization Ordered by Beronica Valladares MD for Inpatient sf Admission. Preliminary diagnosis is Coronavirus infection, unspecified; Pneumonia; Hypoxia. Bed requested for Telemetry/MedSurg (Inpatient). Status is Inpatient Admission. Condition is Stable. Problem is new. Symptoms have improved. mw
[2020-09-09] MEDS ORDERED: ONDANSETRON 4 MG/2 ML VIAL ONE (23:23)
[2020-09-09] MEDS ORDERED: dexAMETHasone 10 MG/ML VIAL ONE (23:55)
--- NOTE | 2020-09-10 01:57 | P.HP ---
Certification for Inpatient Patient admitted to: Inpatient With expected LOS: >2 Midnights Practitioner: I am a practitioner with admitting privileges, knowledge of patient current condition, hospital course, and medical plan of care. Services: Services provided to patient in accordance with Admission requirements found in Title 42 Section 412.3 of the Code of Federal Regulations Patient History Date of Service: 09/09/20 Primary Care Provider: Martin Reason for admission: covid pneumonia History of Present Illness: Ms. Higuera is an 85 year old woman with HTN, HLD, parkinson's disease here today for worsening SOB, cough, and weakness after initial COVID diagnosis 2 weeks ago. She has been symptomatic for the past 5 days. Reports fever, night sweats, chills, dry cough, constipation for 4 days. Denies pleurtic pain, hemoptysis, wheezing, diarrhea. Currently on 3L of O2. H/H 10., WBC 6.8, plt 241. Na 139, K 3.5, Cl 107, HCO3 24, BUN 10, Cl 0.58, Glu 113. D dimer 1659. CTPE pending. CXR shows moderate to marked right and moderate left pulmonary opacities, probably pneumonia. Allergies No Known Allergies Allergy (Verified 05/01/17 15:30) Home medications list reviewed: No Home Medications: Alprazolam [Xanax] 0.5 mg PO DAILY PRN 09/10/20 Atorvastatin Calcium [Lipitor] 40 mg PO BEDTIME 09/10/20 Carbidopa/Levodopa [Carbidopa-Levodopa 25-100 Tab] 1 tab PO BID 09/10/20 Gabapentin [Neurontin*] 200 mg PO DAILY 09/10/20 Metoprolol Succinate [Toprol Xl*] 25 mg PO DAILY 09/10/20 Sertraline [Zoloft*] 50 mg PO DAILY 09/10/20 Temazepam [Restoril] 30 mg PO BEDTIME PRN 09/10/20 - Past Medical/Surgical History Diabetic: No -: HLD -: depression -: parkinson's -: HTN -: CABG -: hysterectomy - Social History Smoking Status: Never smoker Alcohol use: No CD- Drugs: No Caffeine use: No Place of Residence: Home Review of Systems General: Fever, Chills, Sweats, Weakness, As per HPI Eyes: Unremarkable ENT: Unremarkable Respiratory: Cough, Dry, Shortness of Breath, As per HPI Cardiovascular: Unremarkable Gastrointestinal: Constipation, As per HPI Genitourinary: Unremarkable Musculoskeletal: Unremarkable Integumentary: Unremarkable Neurological: Unremarkable Lymphatics: Unremarkable Physical Examination - Vital Signs Temperature: 98.2 F Blood Pressure: 126/56 Pulse: 85 Respirations: 18 Pulse Ox (%): 94 (3L ) - Physical Exam General: Alert, In no apparent distress, Oriented x3, Cooperative HEENT: Atraumatic, Normocephalic, PERRLA, Mucous membr. moist/pink, EOMI, Sclerae nonicteric Neck: Supple, 2+ carotid pulse no bruit, JVD not distended, No Thyromegaly, No LAD Respiratory: Diminished, Rhonchi/gurgles Cardiovascular: Normal pulses, Regular rate/rhythm, Normal S1 S2, No gallops, No rubs, No murmurs, Other (trace edema) Capillary refill: <2 Seconds Gastrointestinal: Normal bowel sounds, Soft and benign, Non-distended, No ascites, No tenderness, No masses, No rebound, No guarding Musculoskeletal: No clubbing, No swelling, No contractures, No erythema, No tenderness, No warmth Integumentary: No rashes, No breakdown, No significant lesion, No tenderness/swelling, No erythema, No warmth, No cyanosis Neurological: Normal speech, Normal strength at 5/5 x4 extr, Normal tone, Sensation intact, Cranial nerves 3-12 intact, Normal affect Lymphatics: No axilla or inguinal lymphadenopathy Urinary: Muñoz catheter - Studies Laboratory Data (last 24 hrs) 09/09/20 21:18: PT 14.5 H, INR 1.26 09/09/20 21:18: WBC 6.80, Hgb 10.2 L, Hct 29.0 L, Plt Count 241 09/09/20 21:18: Sodium 139, Potassium 3.5, BUN 10, Creatinine 0.58, Glucose 113 H, Magnesium 2.1, Total Bilirubin 0.4, AST 55 H, ALT 32, Alkaline Phosphatase 97 Assessment and Plan - Problems (Diagnosis) (1) Pneumonia due to COVID-19 virus Current Visit: Yes Status: Acute (2) Hypertension Current Visit: Yes Status: Chronic Qualifiers: Hypertension type: essential hypertension Qualified Code(s): I10 - Essential (primary) hypertension (3) Hyperlipidemia Current Visit: Yes Status: Chronic Qualifiers: Hyperlipidemia type: unspecified Qualified Code(s): E78.5 - Hyperlipidemia, unspecified (4) Parkinson disease Current Visit: Yes Status: Chronic (5) Depression Current Visit: Yes Status: Chronic Qualifiers: Depression Type: unspecified Qualified Code(s): F32.9 - Major depressive disorder, single episode, unspecified - Plan - consult pulmonology and respiratory consult -daily sats and home O2 sats -covid supplements, ivermectin, steroids -continue with home medications Discharge Plan: Home Plan to discharge in: 48 Hours - Advance Directives Does patient have a Living Will: No Does patient have a Durable POA for Healthcare: No - Code Status/Comfort Care Code Status Assessed: Yes (DNI) Critical Care: No Time Spent Managing Pts Care (In Minutes): 70
[2020-09-10] MEDS ORDERED: BENZONATATE 100 MG CAP PO PRN (02:40)
[2020-09-10] MEDS ORDERED: ONDANSETRON 4 MG/2 ML VIAL IV PRN (02:40)
[2020-09-10] MEDS ORDERED: MORPHINE 2 MG/ML SYR IV PRN (02:40)
[2020-09-10] MEDS ORDERED: DOCUSATE NA 100 MG CAP PO ONE (02:40)
[2020-09-10 02:44] VITALS: BMI 24.8
[2020-09-10] MEDS: TEMAZEPAM 15 MG CAP PO PRN ×2 (02:56→20:55)
[2020-09-10 05:40] LABS: Ferritin 471.2 ng/mL (8-388)
[2020-09-10] MEDS: VITAMIN D 1000 UNIT TAB PO SCH (07:38)
[2020-09-10] MEDS: ENOXAPARIN 40 MG/0.4 ML SQ SCH (07:38)
[2020-09-10] MEDS: THIAMINE HCL 100 MG TABLET PO SCH (07:39)
[2020-09-10] MEDS: METHYLPREDNISOLONE 125 MG INJ IV SCH ×2 (07:39→20:54)
[2020-09-10] MEDS: FAMOTIDINE 20 MG TAB PO SCH ×2 (07:39→20:55)
[2020-09-10] MEDS: ZINC SULFATE 220 MG CAP PO SCH (07:39)
[2020-09-10] MEDS: ASCORBIC ACID 500 MG TABLET PO SCH ×4 (07:39→20:55)
--- NOTE | 2020-09-10 09:49 | EKG ---
Test Date: 2020-09-09 Test Time: 20:59:17 Supervisor Assembly Department: [facility] MEASUREMENT RESULTS: Intervals: Rate: 81 MS: 204 QRSD: 80 QT: 424 QTc: 492 Sells: P: 48 MS: 204 QRS: 5 T: 17 INTERPRETIVE STATEMENTS: Normal sinus rhythm Possible Inferior infarct, age undetermined Cannot rule out Anterior infarct, age undetermined Abnormal ECG Compared to ECG 07/17/2018 16:16:55 First degree AV block no longer present T-wave abnormality no longer present Possible ischemia no longer present Myocardial infarct finding still present Electronically Signed On 09-10-20 09:47:37 CDT by Tom Gillespie
[2020-09-10] MEDS: IVERMECTIN 3 MG TABLET PO SCH (10:00)
[2020-09-10] MEDS ORDERED: Remdesivir 200 MG in NA CHLORIDE 0.9% 250 ML IV ONE (12:00)
[2020-09-10] MEDS ORDERED: FUROSEMIDE 40 MG/4 ML VIAL IV ONE (14:08)
--- NOTE | 2020-09-10 14:08 | P.PN ---
Date of Service: 09/10/20 Patient seen today for. She is complaining of weakness. She states progressive weakness with inability to use a walker prior to admission Admitted for covid pneumonia Oxygen requirements remain stable now Vitals remain stable Impression Covid pneumonia Hypertension History of Parkinson's disease Progressive asthenia Plan -continue covid management -will consult PT and OT for increased muscle activity -patient transferred out of bed to chair for today -
[2020-09-10] MEDS ORDERED: ALPRAZOLAM 0.5 MG TABLET PO PRN (14:10)
[2020-09-10] MEDS: ACETAMINOPHEN 500 MG TAB PO PRN (20:54)
[2020-09-10] MEDS: CARBIDOPA/LEVODOPA 25/100 TAB PO SCH (20:54)
[2020-09-10] MEDS: ATORVASTATIN 40 MG TAB PO SCH (20:55)
[2020-09-10] MEDS: GUAIFENESIN 600 MG SA TAB PO SCH (20:55)
[2020-09-11 04:29] LABS: Absolute Lymphocytes (CBC) 0.5 K/uL (0.7-4.9); Basophils % 0.1 % (0-1.3); Hematocrit 28.4 % (36.0-45.0); Lymphocytes % 5.9 % (15.3-44.8); MPV 7.3 fL (7.6-11.3); RBC Red Blood Cell Count 3.21 M/uL (3.86-4.86)
[2020-09-11 04:38] LABS: ALT/SGPT 13 U/L (12-78); AST/SGOT 40 U/L (15-37); Albumin 2.4 g/dL (3.4-5.0); Alkaline Phosphatase 95 U/L (45-117); BUN Blood Urea Nitrogen 17 mg/dL (7-18); Bicarbonate 27 mmol/L (21-32); Bilirubin Total 0.3 mg/dL (0.2-1.0); Glucose Level 131 mg/dL (74-106); Potassium 3.9 mmol/L (3.5-5.1); Protein, Total 6.5 g/dL (6.4-8.2); Sodium Level 143 mmol/L (136-145)
[2020-09-11 06:32] LABS: Blood Morphology Comment NOTED (NOT SEEN); Platelet Estimate ADEQ; Polychromasia SLIGHT
[2020-09-11] MEDS: GABAPENTIN 100 MG CAP PO SCH (08:01)
[2020-09-11] MEDS: VITAMIN D 1000 UNIT TAB PO SCH (08:01)
[2020-09-11] MEDS: FAMOTIDINE 20 MG TAB PO SCH ×2 (08:01→20:11)
[2020-09-11] MEDS: THIAMINE HCL 100 MG TABLET PO SCH (08:01)
[2020-09-11] MEDS: SERTRALINE HCL 50 MG TAB PO SCH (08:01)
[2020-09-11] MEDS: GUAIFENESIN 600 MG SA TAB PO SCH ×2 (08:02→20:13)
[2020-09-11] MEDS: ZINC SULFATE 220 MG CAP PO SCH (08:03)
[2020-09-11] MEDS: CARBIDOPA/LEVODOPA 25/100 TAB PO SCH ×2 (08:03→20:12)
[2020-09-11] MEDS: ASCORBIC ACID 500 MG TABLET PO SCH ×4 (08:04→20:12)
[2020-09-11] MEDS: METHYLPREDNISOLONE 125 MG INJ IV SCH ×3 (08:04→20:11)
[2020-09-11] MEDS: ENOXAPARIN 40 MG/0.4 ML SQ SCH (08:04)
[2020-09-11] MEDS: ASPIRIN EC 81 MG TAB PO SCH (08:05)
--- NOTE | 2020-09-11 08:05 | P.CNS ---
Date of Consult: 09/11/20 Primary Care Provider: Martin Chief Complaint: covid pneumonia History of Present Illness: Patient is 85 years of age for tension for plans disease admitted worsening dyspnea cough was diagnosed with coronal virus infection 2 weeks ago as been complaining of chills try cough admitted with hypoxemia and bilateral pneumonia Allergies No Known Allergies Allergy (Verified 05/01/17 15:30) Home Medications: Alprazolam [Xanax] 0.5 mg PO DAILY PRN 09/10/20 Atorvastatin Calcium [Lipitor] 40 mg PO BEDTIME 09/10/20 Carbidopa/Levodopa [Carbidopa-Levodopa 25-100 Tab] 1 tab PO BID 09/10/20 Gabapentin [Neurontin*] 200 mg PO DAILY 09/10/20 Metoprolol Succinate [Toprol Xl*] 25 mg PO DAILY 09/10/20 Sertraline [Zoloft*] 50 mg PO DAILY 09/10/20 Temazepam [Restoril] 30 mg PO BEDTIME PRN 09/10/20 Docusate [Colace Cap*] 100 mg PO BEDTIME 09/11/20 Sennosides/Docusate Sodium [Stool Softener-Laxative Tablet] 1 tab PO BEDTIME 09/11/20 - Past Medical/Surgical History Diabetic: No -: HLD -: depression -: parkinson's -: HTN -: CABG -: hysterectomy -: appendectomy -: cardiac stents - Social History Alcohol use: No CD- Drugs: No Caffeine use: No Place of Residence: Home Review of Systems General: Weakness Respiratory: Shortness of Breath Physical Examination Temp Pulse Resp BP Pulse Ox 97.1 F 75 16 144/66 H 98 09/11/20 04:00 09/11/20 04:00 09/11/20 04:00 09/11/20 04:00 09/11/20 04:00 - Problems (1) Pneumonia due to COVID-19 virus Current Visit: Yes Status: Acute Plan: Patient is 85 years of age admitted with pneumonia due to garcia virus chemistries lab reviewed mildly anemic CT scan shows bilateral pneumonia she still hypoxic patient is currently on 4 L, 87% Dc Lasix start patient on Eliquis aspirin has been added
[2020-09-11] MEDS ORDERED: POTASSIUM 25 MEQ EFFERV TAB PO ONE (09:00)
[2020-09-11] MEDS ORDERED: FUROSEMIDE 40 MG TABLET PO SCH (09:00)
[2020-09-11] MEDS ORDERED: APIXABAN 2.5 MG TABLET PO SCH (09:00)
[2020-09-11] MEDS: Remdesivir 100 MG in NA CHLORIDE 0.9% 250 ML IV SCH (09:32)
--- NOTE | 2020-09-11 12:11 | RAD REPORT ---
EXAM DESCRIPTION: CT - Chest For Pe Angio - 09/10/2020 7:06 am CLINICAL HISTORY: The patient is 85 years old and is Female; SOB TECHNIQUE: Axial computed tomographic angiography images of the chest with intravenous contrast. S agittal and coronal reformatted images were created and reviewed. This CT exam was performed using one or more of the following dose reduction techniques: automated exposure control, adjustment of t he mA and/or kV according to patient size, and/or use of iterative reconstruction technique. MIP re constructed images were created and reviewed. COMPARISON: No relevant prior studies available. FINDINGS: Pulmonary arteries: Unremarkable. No pulmonary embolism. Aorta: Scattered atherosclerotic vascular calcifications. No thoracic aortic aneurysm. Great vessels of aortic arch: Stent at the origin of the left subclavian artery. There is focal narrowing of the left subclavian artery just distal to the stent. Lungs: Multifocal consolidation and groundglass opacities bilaterally. Pleural space: Small right pleural effusion. Trace left pleural effusion. No pneumothorax. Heart: Unremarkable. No cardiomegaly. No significant pericardial effusion. No evidence of RV dysfunction. Bones/joints: No acute fracture. No dislocation. Soft tissues: Unremarkable. Lymph nodes: Unremarkable. No enlarged lymph nodes. IMPRESSION: 1. No evidence of pulmonary embolism. 2. Small right pleural effusion. Trace left pleural effusion. 3. Multifocal consolidation and groundglass opacities bilaterally. Findings are suggestive of mul tifocal pneumonia. Electronically signed by: Kenn Anderson MD 09/10/2020 1:43 AM CDT Due to temporary technical issues with the PACS/Fluency reporting system, reports are being signed by the in house radiologist without review as a courtesy to ensure prompt reporting. The interpreting r adiologist is fully responsible for the content of the report.
--- NOTE | 2020-09-11 14:00 | P.PN ---
Subjective Date of Service: 09/11/20 Primary Care Provider: Martin Chief Complaint: covid pneumonia Subjective: Improving, Doing well Physical Examination - Vital Signs Temperature: 97.1 F Blood Pressure: 135/61 Pulse: 79 Respirations: 24 Pulse Ox (%): 90 Assessment & Plan Discharge Plan: Home Plan to discharge in: Greater than 2 days Physician Review Additional Text: Physical exam: Patient alert, cooperative. Currently stable on 8 L per nasal cannula. Heart: Regular rate and rhythm Lungs: Currently on 8 L per nasal cannula. No respiratory distress noted. GI: Soft nontender nondistended Extremities: Good range of motion. No focal deficits Impression: Dyspnea with hypoxia secondary to bilateral Covid-19 pneumonia Hypertension Hyperlipidemia Parkinson's Depression Plan: Dyspnea with hypoxia secondary to bilateral Covid-19 pneumonia: Continue with IV Solu-Medrol and remdesivir. Increase Solu-Medrol. Continue to monitor and trend ferritin and CRP. Maintain oxygen above 93%. Continue to wean off. Will have physical therapy assess ambulation. Encourage incentive spirometer, ambulation. Will discuss further with pulmonology. Anticipate improvement over the next 72 hours. Hypertension: Continue home medication Hyperlipidemia: Continue home medication Parkinson's: Continue home medication Depression:Continue home medication Time Spent Managing Pts Care (In Minutes): 55
[2020-09-11] MEDS: ATORVASTATIN 40 MG TAB PO SCH (20:11)
[2020-09-11] MEDS: SENOSIDES 8.6 MG TAB PO SCH (20:12)
[2020-09-11] MEDS: TEMAZEPAM 15 MG CAP PO PRN (20:12)
[2020-09-11] MEDS: APIXABAN 5 MG TABLET PO SCH (20:12)
[2020-09-11] MEDS: DOCUSATE NA 100 MG CAP PO SCH (20:12)
[2020-09-11] MEDS: ACETAMINOPHEN 500 MG TAB PO PRN (20:13)
[2020-09-12 04:12] LABS: Absolute Lymphocytes (CBC) 0.5 K/uL (0.7-4.9); Basophils % 0.2 % (0-1.3); Lymphocytes % 6.3 % (15.3-44.8); MPV 7.1 fL (7.6-11.3); RBC Red Blood Cell Count 3.16 M/uL (3.86-4.86)
[2020-09-12 04:32] LABS: ALT/SGPT 15 U/L (12-78); AST/SGOT 30 U/L (15-37); BUN Blood Urea Nitrogen 21 mg/dL (7-18); Bicarbonate 26 mmol/L (21-32); Ferritin 504.6 ng/mL (8-388); Glucose Level 138 mg/dL (74-106); Sodium Level 140 mmol/L (136-145)
[2020-09-12] MEDS: VITAMIN D 1000 UNIT TAB PO SCH (09:39)
[2020-09-12] MEDS: CARBIDOPA/LEVODOPA 25/100 TAB PO SCH ×2 (09:39→21:00)
[2020-09-12] MEDS: SERTRALINE HCL 50 MG TAB PO SCH (09:39)
[2020-09-12] MEDS: ZINC SULFATE 220 MG CAP PO SCH (09:39)
[2020-09-12] MEDS: FAMOTIDINE 20 MG TAB PO SCH ×2 (09:40→21:00)
[2020-09-12] MEDS: APIXABAN 5 MG TABLET PO SCH ×2 (09:40→21:00)
[2020-09-12] MEDS: ASPIRIN EC 81 MG TAB PO SCH (09:40)
[2020-09-12] MEDS: GABAPENTIN 100 MG CAP PO SCH (09:41)
[2020-09-12] MEDS: THIAMINE HCL 100 MG TABLET PO SCH (09:41)
[2020-09-12] MEDS: ASCORBIC ACID 500 MG TABLET PO SCH ×4 (09:41→21:00)
[2020-09-12] MEDS: GUAIFENESIN 600 MG SA TAB PO SCH ×2 (09:41→21:00)
[2020-09-12] MEDS: IVERMECTIN 3 MG TABLET PO SCH (09:44)
[2020-09-12] MEDS: Remdesivir 100 MG in NA CHLORIDE 0.9% 250 ML IV SCH (09:46)
[2020-09-12] MEDS: METHYLPREDNISOLONE 125 MG INJ IV SCH ×3 (09:47→21:00)
--- NOTE | 2020-09-12 13:13 | P.PN ---
Subjective Date of Service: 09/12/20 Primary Care Provider: Martin Chief Complaint: covid pneumonia Subjective: Improving Physical Examination - Vital Signs Temperature: 97.6 F Blood Pressure: 112/52 Pulse: 75 Respirations: 25 Pulse Ox (%): 96 - Studies Microbiology Data (last 24 hrs): 09/09/20 21:52 Clean Catch Urine [place] Count - Final BETWEEN 10,000 & 100,000 CFU/ML 09/09/20 21:52 Clean Catch Urine - Final MIXED ELVIN. Assessment & Plan Discharge Plan: Home Plan to discharge in: 24 Hours Physician Review Additional Text: Physical exam: Patient alert, cooperative. Currently stable on 6 L per nasal cannula. Heart: Regular rate and rhythm Lungs: Currently on 6 L per nasal cannula. No respiratory distress noted. GI: Soft nontender nondistended Extremities: Good range of motion. No focal deficits Impression: Dyspnea with hypoxia secondary to bilateral Covid-19 pneumonia Hypertension Hyperlipidemia Parkinson's Depression Plan: Dyspnea with hypoxia secondary to bilateral Covid-19 pneumonia: Patient shows improvement. Currently on 6 L per nasal cannula. Continue physical therapy. Continue IV Solu-Medrol and remdesivir. Increase Solu-Medrol. Continue to monitor and trend ferritin and CRP. Maintain oxygen above 93%. Continue to wean off. Continue with physical therapy assess ambulation. Encourage incentive spirometer, ambulation. Will discuss further with pulmonology. Anticipate improvement over the next 24 hours once patient is able to utilize oxygen at 4 L or less.. Hypertension: Continue home medication Hyperlipidemia: Continue home medication Parkinson's: Continue home medication Depression:Continue home medication Time Spent Managing Pts Care (In Minutes): 55
[2020-09-12] MEDS: TEMAZEPAM 15 MG CAP PO PRN (20:49)
[2020-09-12] MEDS: DOCUSATE NA 100 MG CAP PO SCH (21:00)
[2020-09-12] MEDS: SENOSIDES 8.6 MG TAB PO SCH (21:00)
[2020-09-12] MEDS: ATORVASTATIN 40 MG TAB PO SCH (21:00)
[2020-09-13 04:11] LABS: Absolute Lymphocytes (CBC) 0.5 K/uL (0.7-4.9); Basophils % 0.2 % (0-1.3); Hematocrit 27.4 % (36.0-45.0); Lymphocytes % 7.1 % (15.3-44.8); MPV 6.9 fL (7.6-11.3); RBC Red Blood Cell Count 3.12 M/uL (3.86-4.86)
[2020-09-13 05:49] LABS: ALT/SGPT 33 U/L (12-78); AST/SGOT 23 U/L (15-37); BUN Blood Urea Nitrogen 21 mg/dL (7-18); Bicarbonate 27 mmol/L (21-32); Ferritin 351.4 ng/mL (8-388); Glucose Level 133 mg/dL (74-106); Potassium 4.1 mmol/L (3.5-5.1); Sodium Level 141 mmol/L (136-145)
[2020-09-13] MEDS: VITAMIN D 1000 UNIT TAB PO SCH (10:06)
[2020-09-13] MEDS: GABAPENTIN 100 MG CAP PO SCH (10:06)
[2020-09-13] MEDS: ASPIRIN EC 81 MG TAB PO SCH (10:06)
[2020-09-13] MEDS: FAMOTIDINE 20 MG TAB PO SCH ×2 (10:06→20:23)
[2020-09-13] MEDS: CARBIDOPA/LEVODOPA 25/100 TAB PO SCH ×2 (10:07→20:23)
[2020-09-13] MEDS: METHYLPREDNISOLONE 125 MG INJ IV SCH ×3 (10:07→20:24)
[2020-09-13] MEDS: GUAIFENESIN 600 MG SA TAB PO SCH ×2 (10:08→20:23)
[2020-09-13] MEDS: ZINC SULFATE 220 MG CAP PO SCH (10:08)
[2020-09-13] MEDS: APIXABAN 5 MG TABLET PO SCH ×2 (10:09→20:24)
[2020-09-13] MEDS: THIAMINE HCL 100 MG TABLET PO SCH (10:09)
[2020-09-13] MEDS: ASCORBIC ACID 500 MG TABLET PO SCH ×4 (10:09→20:24)
[2020-09-13] MEDS: SERTRALINE HCL 50 MG TAB PO SCH (10:09)
[2020-09-13] MEDS: Remdesivir 100 MG in NA CHLORIDE 0.9% 250 ML IV SCH (10:10)
--- NOTE | 2020-09-13 12:46 | P.PN ---
Subjective Date of Service: 09/13/20 Primary Care Provider: Martin Chief Complaint: covid pneumonia Subjective: Improving, Doing well Physical Examination - Vital Signs Temperature: 97.7 F Blood Pressure: 143/65 Pulse: 65 Respirations: 18 Pulse Ox (%): 92 Assessment & Plan Discharge Plan: Home Plan to discharge in: 24 Hours Physician Review Additional Text: Physical exam: Patient alert, cooperative. Currently stable on 4 L per nasal cannula. Heart: Regular rate and rhythm Lungs: Currently on 4 L per nasal cannula. No respiratory distress noted. GI: Soft nontender nondistended Extremities: Good range of motion. No focal deficits Impression: Dyspnea with hypoxia secondary to bilateral Covid-19 pneumonia Hypertension Hyperlipidemia Parkinson's Depression Plan: Dyspnea with hypoxia secondary to bilateral Covid-19 pneumonia: Patient continues to show improvement. Currently on 4 L per nasal cannula. Will have physical therapy assist ambulation. If able to tolerate 4 L or less without significant desaturations or shortness of breath will consider discharge later today. Continue IV Solu-Medrol and remdesivir. Increase Solu-Medrol. Continue to monitor and trend ferritin and CRP. Maintain oxygen above 93%. Hypertension: Continue home medication Hyperlipidemia: Continue home medication Parkinson's: Continue home medication Depression:Continue home medication Time Spent Managing Pts Care (In Minutes): 55
[2020-09-13] MEDS: ATORVASTATIN 40 MG TAB PO SCH (20:23)
[2020-09-13] MEDS: DOCUSATE NA 100 MG CAP PO SCH (20:24)
[2020-09-13] MEDS: SENOSIDES 8.6 MG TAB PO SCH (20:24)
[2020-09-13] MEDS: TEMAZEPAM 15 MG CAP PO PRN (20:34)
[2020-09-14 04:10] LABS: Absolute Lymphocytes (CBC) 0.5 K/uL (0.7-4.9); Basophils % 0.1 % (0-1.3); Hematocrit 29.1 % (36.0-45.0); Lymphocytes % 6.7 % (15.3-44.8); RBC Red Blood Cell Count 3.27 M/uL (3.86-4.86)
[2020-09-14 05:03] LABS: BUN Blood Urea Nitrogen 19 mg/dL (7-18); Bicarbonate 26 mmol/L (21-32); Glucose Level 135 mg/dL (74-106); Potassium 4.1 mmol/L (3.5-5.1); Sodium Level 141 mmol/L (136-145)
[2020-09-14 05:04] LABS: ALT/SGPT 11 U/L (12-78); AST/SGOT 19 U/L (15-37); Ferritin 272.6 ng/mL (8-388)
--- NOTE | 2020-09-14 08:58 | P.DS ---
Admission Date: 09/10/20 Discharge Date: 09/14/20 Primary Care Provider: Dr. Salazar Disposition: DC HOME/HOME HEALTH CARE Discharge Condition: GOOD Reason for Admission: covid pneumonia Consultations: Pulmonary-Dr. Gomez Procedures: COVID: Positive CT Scan: FINDINGS: Pulmonary arteries: Unremarkable. No pulmonary embolism. Aorta: Scattered atherosclerotic vascular calcifications. No thoracic aortic aneurysm. Great vessels of aortic arch: Stent at the origin of the left subclavian artery. There is focal narrowing of the left subclavian artery just distal to the stent. Lungs: Multifocal consolidation and groundglass opacities bilaterally. Pleural space: Small right pleural effusion. Trace left pleural effusion. No pneumothorax. Heart: Unremarkable. No cardiomegaly. No significant pericardial effusion. No evidence of RV dysfunction. Bones/joints: No acute fracture. No dislocation. Soft tissues: Unremarkable. Lymph nodes: Unremarkable. No enlarged lymph nodes. IMPRESSION: 1. No evidence of pulmonary embolism. 2. Small right pleural effusion. Trace left pleural effusion. 3. Multifocal consolidation and groundglass opacities bilaterally. Findings are suggestive of multifocal pneumonia. Medical Problem List: Dyspnea with hypoxia secondary to bilateral Covid-19 pneumonia Hypertension Hyperlipidemia Parkinson's Depression Brief History of Present Illness: Primary Care Provider: Martin Reason for admission: covid pneumonia History of Present Illness: Ms. Higuera is an 85 year old woman with HTN, HLD, parkinson's disease here today for worsening SOB, cough, and weakness after initial COVID diagnosis 2 weeks ago. She has been symptomatic for the past 5 days. Reports fever, night sweats, chills, dry cough, constipation for 4 days. Denies pleurtic pain, hemoptysis, wheezing, diarrhea. Currently on 3L of O2. H/H 10.2/29, WBC 6.8, plt 241. Na 139, K 3.5, Cl 107, HCO3 24, BUN 10, Cl 0.58, Glu 113. D dimer 1659. CTPE pending. CXR shows moderate to marked right and moderate left pulmonary opacities, probably pneumonia. Allergies Hospital Course: She presented with dyspnea and hypoxia secondary to bilateral Covid pneumonia. The patient was admitted for treatment. The patient did well in the course of her stay. Patient received IV steroids, remdesivir and supplementation. Patient was seen by pulmonology. The patient improved. At discharge she still requires home oxygen. At discharge she is currently on 4 L per nasal cannula. She will continue with home oxygen to maintain sats above 93%. At discharge she will continue with prednisone 20 mg 1 pill twice daily for 7 days then 1 pill once daily for 7 days. Other medications include vitamin C 500 mg 3 times a day, vitamin D 2000 units daily, thiamine 200 mg daily, and zinc 220 mg daily. Home health and physical therapy will be arranged prior to discharge. Fall precautions in place. Encourage incentive spirometer, proning.at discharge she will be provided information on COVID-19 education including isolation, facemask use, handwashing and social distancing. Recommendations for the patient to follow-up with pulmonology in 1 week to follow-up his hospitalization and continue her care. Further adjustment in oxygen and medication can be done by pulmonology. Recommend follow-up with her PCP to further monitor and address. Patient with hypertension and CAD. At discharge she will continue with her medications including metoprolol XL 25 mg daily, aspirin 81 mg daily and Plavix 25 mg daily. At discharge she will continue with her medication for hyperlipidemia including Lipitor 40 mg daily. Patient with Parkinson's. At discharge she will continue with her current regimen of carbidopa levodopa 25/100 mg 1 pill twice daily. Patient with depression. At discharge she will continue with her current medication of Zoloft 50 mg daily. Vital Signs/Physical Exam: Temp Pulse Resp BP Pulse Ox 97.7 F 65 16 130/59 L 95 09/14/20 08:00 09/14/20 08:00 09/14/20 08:00 09/14/20 08:00 09/14/20 08:00 General: Alert, In no apparent distress, Oriented x3, Cooperative HEENT: Atraumatic Neck: Supple Respiratory: Clear to auscultation bilaterally, Normal air movement Cardiovascular: Normal pulses, Regular rate/rhythm Gastrointestinal: Normal bowel sounds, Soft and benign, Non-distended, No tenderness, No masses, No rebound, No guarding Musculoskeletal: No tenderness, No warmth Neurological: Normal speech, Normal strength at 5/5 x4 extr, Normal tone, Normal affect Laboratory Data at Discharge: WBC 7.80 K/uL (4.3-10.9) D 09/14/20 03:12 Hgb 9.7 g/dL (12.0-15.0) L 09/14/20 03:12 Hct 29.1 % (36.0-45.0) L 09/14/20 03:12 Plt Count 420 K/uL (152-406) H 09/14/20 03:12 PT 14.5 SECONDS (9.5-12.5) H 09/09/20 21:18 INR 1.26 09/09/20 21:18 Sodium 141 mmol/L (136-145) 09/14/20 03:12 Potassium 4.1 mmol/L (3.5-5.1) 09/14/20 03:12 BUN 19 mg/dL (7-18) H 09/14/20 03:12 Creatinine 0.36 mg/dL (0.55-1.3) L 09/14/20 03:12 Glucose 135 mg/dL (74-106) H 09/14/20 03:12 Magnesium 2.1 mg/dL (1.8-2.4) 09/09/20 21:18 Total Bilirubin 0.3 mg/dL (0.2-1.0) 09/11/20 03:49 AST 19 U/L (15-37) 09/14/20 03:12 ALT 11 U/L (12-78) L 09/14/20 03:12 Alkaline Phosphatase 95 U/L (45-117) 09/11/20 03:49 Home Medications: Alprazolam [Xanax] 0.5 mg PO DAILY PRN 09/10/20 Atorvastatin Calcium [Lipitor] 40 mg PO BEDTIME 09/10/20 Carbidopa/Levodopa [Carbidopa-Levodopa 25-100 Tab] 1 tab PO BID 09/10/20 Gabapentin [Neurontin*] 200 mg PO DAILY 09/10/20 Metoprolol Succinate [Toprol Xl*] 25 mg PO DAILY 09/10/20 Sertraline [Zoloft*] 50 mg PO DAILY 09/10/20 Temazepam [Restoril] 30 mg PO BEDTIME PRN 09/10/20 Docusate [Colace Cap*] 100 mg PO BEDTIME 09/11/20 Sennosides/Docusate Sodium [Stool Softener-Laxative Tablet] 1 tab PO BEDTIME 09/11/20 Ascorbic Acid [Vitamin C*] 500 mg PO TID #90 tablet 09/14/20 Cholecalciferol (Vitamin D3) [Vitamin D 1000 Iu Tab*] 2,000 unit PO DAILY #60 tab 09/14/20 Thiamine HCl [Vitamin B-1*] 200 mg PO DAILY #60 tablet 09/14/20 Zinc Sulfate [Zinc Sulfate*] 220 mg PO DAILY #30 cap 09/14/20 predniSONE [Prednisone*] 20 mg PO SEECOM #21 tab 09/14/20 New Medications: predniSONE [Prednisone*] 20 mg PO SEECOM #21 tab Thiamine HCl [Vitamin B-1*] 200 mg PO DAILY #60 tablet Ascorbic Acid [Vitamin C*] 500 mg PO TID #90 tablet Cholecalciferol (Vitamin D3) [Vitamin D 1000 Iu Tab*] 2,000 unit PO DAILY #60 tab Zinc Sulfate [Zinc Sulfate*] 220 mg PO DAILY #30 cap Physician Discharge Instructions: She presented with dyspnea and hypoxia secondary to bilateral Covid pneumonia. The patient was admitted for treatment. The patient did well in the course of her stay. Patient received IV steroids, remdesivir and supplementation. Patient was seen by pulmonology. The patient improved. At discharge she still requires home oxygen. At discharge she is currently on 4 L per nasal cannula. She will continue with home oxygen to maintain sats above 93%. At discharge she will continue with prednisone 20 mg 1 pill twice daily for 7 days then 1 pill once daily for 7 days. Other medications include vitamin C 500 mg 3 times a day, vitamin D 2000 units daily, thiamine 200 mg daily, and zinc 220 mg daily. Home health and physical therapy will be arranged prior to discharge. Fall precautions in place. Encourage incentive spirometer, proning.at discharge she will be provided information on COVID-19 education including isolation, facemask use, handwashing and social distancing. Recommendations for the patient to follow-up with pulmonology in 1 week to follow-up his hospitalization and continue her care. Further adjustment in oxygen and medication can be done by pulmonology. Recommend follow-up with her PCP to further monitor and address. Patient with hypertension and CAD. At discharge she will continue with her medications including metoprolol XL 25 mg daily, aspirin 81 mg daily and Plavix 25 mg daily. At discharge she will continue with her medication for hyperlipidemia including Lipitor 40 mg daily. Patient with Parkinson's. At discharge she will continue with her current regimen of carbidopa levodopa 25/100 mg 1 pill twice daily. Patient with depression. At discharge she will continue with her current medication of Zoloft 50 mg daily. Diet: AHA Activity: Ad nela Followup: Carlin Salazar MD [Primary Care Provider] - Time spent managing pt's care (in minutes): 55
[2020-09-14] MEDS: VITAMIN D 1000 UNIT TAB PO SCH (09:40)
[2020-09-14] MEDS: FAMOTIDINE 20 MG TAB PO SCH (09:41)
[2020-09-14] MEDS: THIAMINE HCL 100 MG TABLET PO SCH (09:42)
[2020-09-14] MEDS: GUAIFENESIN 600 MG SA TAB PO SCH (09:42)
[2020-09-14] MEDS: GABAPENTIN 100 MG CAP PO SCH (09:42)
[2020-09-14] MEDS: ZINC SULFATE 220 MG CAP PO SCH (09:43)
[2020-09-14] MEDS: ASCORBIC ACID 500 MG TABLET PO SCH (09:43)
[2020-09-14] MEDS: ASPIRIN EC 81 MG TAB PO SCH (09:43)
[2020-09-14] MEDS: METHYLPREDNISOLONE 125 MG INJ IV SCH (09:43)
[2020-09-14] MEDS: CARBIDOPA/LEVODOPA 25/100 TAB PO SCH (09:44)
[2020-09-14] MEDS: Remdesivir 100 MG in NA CHLORIDE 0.9% 250 ML IV SCH (09:44)
[2020-09-14] MEDS: APIXABAN 5 MG TABLET PO SCH (09:47)
[2020-09-14] MEDS: SERTRALINE HCL 50 MG TAB PO SCH (09:47)
[2020-09-14 12:05] VITALS: O2SAT 94
[2020-09-14 12:49] VITALS: BP 107/55; TEMP 98.5
== END 2020-09-14 12:56 | disposition home health service (06) | DRG 177 ==
LOC: ER 20:12 → 4TH 09-10 01:20
PROVIDERS: ADMIT Internal Medicine; ATTEND Family Medicine
PROC: XW033E5 Introduction of Remdesivir Anti-infective into Peripheral Vein, Percutaneous Approach, New Technology Group 5 (ICD-10-PCS; principal; 2020-09-10)
PROC: 5A09457 Assistance with Respiratory Ventilation, 24-96 Consecutive Hours, Continuous Positive Airway Pressure (ICD-10-PCS; 2020-09-11)
DX: U07.1 COVID-19 (principal); J12.82 Pneumonia due to coronavirus disease 2019; I25.10 Atherosclerotic heart disease of native coronary artery without angina pectoris; I10 Essential (primary) hypertension; E78.5 Hyperlipidemia, unspecified; G20 Parkinson's disease; K59.00 Constipation, unspecified; D64.9 Anemia, unspecified; N30.90 Cystitis, unspecified without hematuria; F32.9 Major depressive disorder, single episode, unspecified; R09.02 Hypoxemia; Z95.5 Presence of coronary angioplasty implant and graft; Z95.1 Presence of aortocoronary bypass graft; Z79.899 Other long term (current) drug therapy; Z79.52 Long term (current) use of systemic steroids
CPT/HCPCS: 36415; 51702; 71045; 71275; 80048; 80053; 80076; 81003; 82728; 83605; 83735; 83880; 84132; 84145; 84450; 84460; 84484; 85025; 85379; 85610; 86140; 87040; 87086; 87088; 93005; 94760; 96365; 96375; 97110; 97112; 97116; 97161; 97530; 99285; J0456; J0696; J1100; J1650; J1940; J2405; J2930; J7050; Q9967; U0003